=== PATIENT | female | born 1950 | race Caucasian/White ===

== ENCOUNTER 2017-02-01 11:33 | Observation (INO) ==
[2017-02-01] MEDS ORDERED: Ipratropium/Albuterol Neb 3 ML IH ONE (11:51)
[2017-02-01] MEDS ORDERED: methylPREDNISolone 125 MG in 0.9 % Sodium Chloride 100 ML IVPB ONE (11:51)
--- NOTE | 2017-02-01 11:56 | Emergency Department Note ---
Disposition Clinical Impression: Congestive heart failure Disposition: Home, Self-Care Condition: Fair Referrals: Alvarado Amor Jr, MD [Primary Care Provider] - Forms: ED Satisfaction Letter Time of Disposition: 13:49 General Adult HPI - General Chief complaint: ED Shortness of Breath/Dyspnea Stated complaint: KADEN Time Seen by Provider: 02/01/17 11:37 Source: patient Limitations: no limitations - History of Present Illness HPI Narrative: This 66-year-old female presents by squad for shortness of breath. She lives on home oxygen at night which is usually 3 L. She has a nebulizer machine but has gotten worse. She has been exacerbated over the last 2 days. She has a history of interstitial lung disease as well. His been no chest pain. No lower extremity pain or swelling. She has had some laryngitis. She has a low- grade temperature elevation. Pain Scale: 6 - Related Data Home Medications Medication Instructions Recorded Confirmed Sertraline [Zoloft] 100 mg PO DAILY 06/22/15 04/11/16 Trazodone HCl 150 mg PO QPM 06/22/15 04/11/16 ALPRAZolam [Xanax 1 MG Tablet] 1 mg PO BID 04/11/16 04/11/16 Atenolol [Tenormin] 50 mg PO BID 04/11/16 04/11/16 Dexlansoprazole [Dexilant] 60 mg PO BID 04/11/16 04/11/16 Metoclopramide [Reglan] 10 mg PO HS 04/11/16 04/11/16 Oxycodone HCl/Acetaminophen 1 each PO Q4-6H PRN 04/11/16 04/11/16 [Percocet 5-325 mg Tablet] Pregabalin [Lyrica] 150 mg PO TID 04/11/16 04/11/16 Ranitidine HCl [Zantac] 150 mg PO HS 04/11/16 04/11/16 Sucralfate [Carafate] 1 gm PO TID 04/11/16 04/11/16 Trazodone HCl 150 mg PO HS 04/11/16 04/11/16 Triamterene/Hydrochlorothiazid 1 each PO BID 04/11/16 04/11/16 [Dyazide 37.5-25 Capsule] amLODIPine [Norvasc] 5 mg PO DAILY 04/11/16 04/11/16 Allergies Allergy/AdvReac Type Severity Reaction Status Date / Time Diclofenac [From Voltaren] AdvReac Rash Verified 04/11/16 10:21 Penicillins [PCN] AdvReac Rash Verified 04/11/16 10:21 propoxyphene [From Darvon] AdvReac Rash Verified 04/11/16 10:21 All systems ED: reviewed and negative except as stated. Constitutional: Reports: fever Cardiovascular: Denies: chest pain Respiratory: Reports: dyspnea, wheezes. Denies: hemoptysis Gastrointestinal: Denies: abdominal pain, vomiting Musculoskeletal: Denies: back pain Past Medical History - Past Medical History Attestation: Yes The following information was validated with the patient. Medical history: Reports: COPD, GERD, hyperlipidemia, hypertension Surgical history: Reports: , cataract, hysterectomy, orthopedic, other Psychiatric history: Reports: anxiety, depression - Social History Smoking Status: Current every day smoker Smokeless Tobacco Status: No Alcohol use: Reports: none Drug use: Reports: none Physical Exam - General Limitations: no limitations General appearance: alert, in no apparent distress - Head Head exam: atraumatic - Eye Eye exam: Present: PERRL - ENT ENT exam: normal exam, normal oropharynx, mucous membranes moist - Neck Neck exam: Present: normal inspection - Chest Chest inspection: Present: symmetric chest wall rise - Respiratory Respiratory exam: Present: wheezes - Cardiovascular Cardiovascular exam: Present: regular rate, normal rhythm - Abdominal Exam Abdominal exam: Present: soft, Non-Tender - Extremities Exam Extremities exam: Absent: pedal edema, calf tenderness - Back Exam Back exam: Present: normal inspection - Neurological Exam Neurological exam: Present: alert, oriented X3 - Skin Skin exam: Present: warm, dry Course Course Narrative: This patient's initial presentation suggests pneumonia as she had laryngitis and an elevated temperature but the x-ray looks more like pulmonary edema. She also has a component of COPD. She is receiving nebulizer treatments. I discussed the case with the hospitalist to arrange for admission Vital Signs Temperature 99.3 F 02/01/17 11:34 Pulse Rate 84 02/01/17 11:34 Respiratory Rate 20 02/01/17 11:34 Blood Pressure 126/83 02/01/17 11:34 O2 Sat by Pulse Oximetry 92 02/01/17 11:34 Temperature 99.3 F 02/01/17 11:34 Pulse Rate 91 02/01/17 12:30 Respiratory Rate 20 02/01/17 12:30 Blood Pressure 109/71 02/01/17 12:30 O2 Sat by Pulse Oximetry 94 02/01/17 12:30 Oxygen Delivery Oxygen Delivery Nasal Cannula Medical Decision Making - Lab Data Result diagrams: 02/01/17 12:24 02/01/17 12:24 Lab Results 02/01/17 02/01/17 02/01/17 Range/Units 12:24 12:24 12:24 WBC 15.5 H (4.3-11.1) K/mcL RBC 4.07 (3.82-4.97) M/mcL Hgb 12.1 (11.5-15.4) g/dL Hct 35.3 (35.3-44.9) % MCV 86.7 (83.0-100.0) fL MCH 29.7 (28.0-33.3) pg MCHC 34.3 (31.6-35.5) g/dL RDW 14.6 H (11.5-14.5) % Plt Count 341 (140-400) K/mcL MPV 9.5 (9.4-12.4) fL Immature Gran % 0.5 (0-4) % Seg Neutrophils % 76.2 % Lymphocytes % 15.4 % Monocytes % 6.3 % Eosinophils % 1.2 % Basophils % 0.4 % Neutrophils # 11.8 H (1.6-8.9) K/mcL Lymphocytes # 2.4 (0.6-4.6) K/mcL Monocytes # 1.0 (0.0-1.3) K/mcL Eosinophils # 0.2 (0.0-0.6) K/mcL Basophils # 0.1 (0.0-0.2) K/mcL Sodium 124 L (136-145) mEq/L Potassium 3.3 L (3.5-4.5) mEq/L Chloride 88 L (98-109) mEq/L Carbon Dioxide 23 (19-29) mEq/L BUN 7 (7-20) mg/dL Creatinine 0.67 (0.57-1.11) mg/dL Est GFR ( Amer) > 60 (> 60) Est GFR (Non-Af Amer) > 60 (> 60) BUN/Creatinine Ratio 10 (6-26) Glucose 131 H (70-99) mg/dL Calculated Osmolality 258 L (280-300) Lactic Acid (0.5-2.2) mmol/L Calcium 9.6 (8.6-10.8) mg/dL Troponin I 0.01 (0-0.03) ng/mL B-Natriuretic Peptide (0-100) pg/mL 02/01/17 02/01/17 Range/Units 12:24 12:24 WBC (4.3-11.1) K/mcL RBC (3.82-4.97) M/mcL Hgb (11.5-15.4) g/dL Hct (35.3-44.9) % MCV (83.0-100.0) fL MCH (28.0-33.3) pg MCHC (31.6-35.5) g/dL RDW (11.5-14.5) % Plt Count (140-400) K/mcL MPV (9.4-12.4) fL Immature Gran % (0-4) % Seg Neutrophils % % Lymphocytes % % Monocytes % % Eosinophils % % Basophils % % Neutrophils # (1.6-8.9) K/mcL Lymphocytes # (0.6-4.6) K/mcL Monocytes # (0.0-1.3) K/mcL Eosinophils # (0.0-0.6) K/mcL Basophils # (0.0-0.2) K/mcL Sodium (136-145) mEq/L Potassium (3.5-4.5) mEq/L Chloride (98-109) mEq/L Carbon Dioxide (19-29) mEq/L BUN (7-20) mg/dL Creatinine (0.57-1.11) mg/dL Est GFR ( Amer) (> 60) Est GFR (Non-Af Amer) (> 60) BUN/Creatinine Ratio (6-26) Glucose (70-99) mg/dL Calculated Osmolality (280-300) Lactic Acid 0.9 (0.5-2.2) mmol/L Calcium (8.6-10.8) mg/dL Troponin I (0-0.03) ng/mL B-Natriuretic Peptide 24 (0-100) pg/mL - Radiology Data Radiology results reviewed: Yes I reviewed the patient's radiology results. - EKG Data EKG #1 EKG attestation: Yes I reviewed and interpreted this EKG. EKG results narrative: EKG interpreted by me showing sinus rhythm at a rate of 83, QRS of 82, QTC of 391, axis of 5. No ischemic changes.
[2017-02-01] MEDS ORDERED: Albuterol 2.5 MG/3 ML NEBULIZER ONE (12:02)
[2017-02-01] MEDS ORDERED: Albuterol 2.5 MG/3 ML NEBULIZER IH ONE (12:03)
[2017-02-01] MEDS: Albuterol 2.5 MG/3 ML NEBULIZER IH ONE ×2 (12:03→12:10)
[2017-02-01] MEDS ORDERED: methylPREDNISolone 125 MG/2 ML VIAL IVP ONE (12:16)
[2017-02-01 12:30] LABS: Basophils # 0.1 K/mcL (0.0-0.2); Basophils % 0.4 %; Eosinophils # 0.2 K/mcL (0.0-0.6); Eosinophils % 1.2 %; Hematocrit 35.3 % (35.3-44.9); Hemoglobin 12.1 g/dL (11.5-15.4); Immature Granulocytes % 0.5 % (0-4); Lymphocytes # 2.4 K/mcL (0.6-4.6); Lymphocytes % 15.4 %; Mean Corpuscular HGB Conc 34.3 g/dL (31.6-35.5); Mean Corpuscular Hemoglobin 29.7 pg (28.0-33.3); Mean Corpuscular Volume 86.7 fL (83.0-100.0); Mean Platelet Volume 9.5 fL (9.4-12.4); Monocytes % 6.3 %; Neutrophils # 11.8 K/mcL (1.6-8.9); Platelet Count 341 K/mcL (140-400); Red Blood Count 4.07 M/mcL (3.82-4.97); Red Cell Distribution Width 14.6 % (11.5-14.5); Segmented Neutrophils % 76.2 %
[2017-02-01 12:44] LABS: BUN/Creatinine Ratio 10 (6-26); Blood Urea Nitrogen 7 mg/dL (7-20); Calcium 9.6 mg/dL (8.6-10.8); Carbon Dioxide 23 mEq/L (19-29); Chloride 88 mEq/L (98-109); Glucose 131 mg/dL (70-99); Osmolality,Calculated 258 (280-300); Potassium 3.3 mEq/L (3.5-4.5); Sodium 124 mEq/L (136-145); eGFR For African Americans > 60 (> 60); eGFR For Non-African Americans > 60 (> 60)
[2017-02-01] MEDS ORDERED: *HR* HYDROcodone/Acet 5/325 mg TABLET PO PRN (14:28)
[2017-02-01] MEDS ORDERED: *HR* Morphine 2 MG/ML SYRINGE IVP PRN (14:28)
[2017-02-01] MEDS ORDERED: Naloxone 0.4 MG/ML INJ IVP PRN (14:28)
[2017-02-01] MEDS ORDERED: Ondansetron 4 MG/2 ML VIAL IVP PRN (14:28)
[2017-02-01] MEDS ORDERED: 0.9 % Sodium Chloride 500 ML IVC ONE (14:34)
--- NOTE | 2017-02-01 15:05 | Internal Med History&Physical ---
Date of Encounter: 02/01/17 Time of Encounter: 15:04 Assessment and Plan (1) Acute and chronic respiratory failure ([id number]) Current visit: Yes Status: Acute Multifactorial: COPDE, bronchitis, ILD exacerbation Continue O2 supplement CXR shows intersitial edema, however, patient has normal BNP <30., no evidence of fluid overload and no edema Continue duonebs, prednisone, levaquin Send sputum culture and respiratory panel Low suspicion for Influenza Blood culture has been sent by ER Repeat CXR-2 views a.m, after fluid hydration Obtain ECHO Qualifiers: Respiratory failure complication: hypoxia Qualified Code(s): J96.21 - Acute and chronic respiratory failure with hypoxia (2) COPD (chronic obstructive pulmonary disease) with acute bronchitis Current visit: Yes Status: Acute As above (3) Interstitial lung disease Current visit: Yes Status: Chronic As in acute on chronic failure (4) Hyponatremia Current visit: Yes Status: Acute Patient is on HCTZ/Triamterene combination Hold diuretics GIve gentle bolus Repeat Chem a.m Patient is not symptomatic (5) Hypokalemia Current visit: Yes Status: Acute Secondary to diuretics and multiple use of nebs Replaced with 40meq, continue to monitor (6) Hypertension Current visit: Yes Status: Chronic Controlled, resume home meds, except diuretics Qualifiers: Hypertension type: essential hypertension Qualified Code(s): I10 - Essential (primary) hypertension (7) Tobacco abuse Current visit: Yes Status: Chronic Chronic, cessation encouraged Internal Medicine - H&P: HPI Chief complaint: Shortness of breath Admitted From: Home Plans for Post Hospital Care: Home History of present illness: Ms. Wilson is a 66 year old female with PMH of COPD, ILD, Tobacco abuse, chronic respiratory failure on nocturnal home O2, HTN, anxiety/Depression, GERD She presented to the ER by squad with complains of shortness of breath for the past 3-4 days with a new cough , productive of yellowish sputum. She reports she has been having low oxygen saturations and requiring continuous use of her oxygen since her symptoms started, she reports chills. She denies sore throat, rhinorrhea, sick contacts, arthralgia or myalgias. She denies recent travels She has a hx of ILD diagnosed by CT scan , she also has Emphysema and smokes daily She denies orthopnea, leg swelling, PND, chest pain, hemoptysis She has no GI symptoms She also reports drinking more liquid in the past few days. She denies changes in urinary symptoms Other ROS is negative Past Med Surg Social Fam HX - Past Medical History Medical history: COPD, GERD, hyperlipidemia, hypertension Psychiatric history: anxiety, depression - Past Surgical History Surgical History: , cataract, hysterectomy, orthopedic, other - Social History Smoking Status: Current every day smoker Smokeless Tobacco Status: No Alcohol use: none Drug use: none Internal Medicine - H&P: Meds Sertraline [Zoloft] 100 mg PO DAILY 06/22/15 [History] ALPRAZolam [Xanax 1 MG Tablet] 1 mg PO BID 04/11/16 [History] Atenolol [Tenormin] 50 mg PO BID 04/11/16 [History] Metoclopramide [Reglan] 10 mg PO HS 04/11/16 [History] Pregabalin [Lyrica] 150 mg PO TID 04/11/16 [History] Ranitidine HCl [Zantac] 150 mg PO HS 04/11/16 [History] Trazodone HCl 150 mg PO HS 04/11/16 [History] Triamterene/Hydrochlorothiazid [Dyazide 37.5-25 Capsule] 1 each PO BID 04/11/16 [History] amLODIPine [Norvasc] 5 mg PO DAILY 04/11/16 [History] Albuterol Neb [Proventil Neb] 2.5 mg IH TID PRN 02/01/17 [History] Cholecalciferol (Vitamin D3) [Vitamin D3] 1,000 mg PO DAILY 02/01/17 [History] Fluticasone Propionate Nasal [Flonase] 1 spray NS DAILY 02/01/17 [History] Fluticasone/Vilanterol [Breo Ellipta 200-25 Mcg INH] 1 puff IH DAILY 02/01/17 [ History] Omeprazole [PriLOSEC] 20 mg PO BID 02/01/17 [History] Oxygen [Oxygen] 3 l NS HS 02/01/17 [History] 3 Allergy/AdvReac Type Severity Reaction Status Date / Time Diclofenac [From Voltaren] AdvReac Rash Verified 04/11/16 10:21 Penicillins [PCN] AdvReac Rash Verified 04/11/16 10:21 propoxyphene [From Darvon] AdvReac Rash Verified 04/11/16 10:21 All Systems PM: A 10-system review of systems was performed and is negative for pertinent findings except as documented above in the HPI. - Constitutional Constitutional: chills, no fever(s), no malaise, no night sweats - EENT Eyes: no change in vision, no discharge, no pain, no photophobia Ears: no ear discharge, no ear pain, no tinnitus Nose, mouth and throat: no dysphagia, no nasal discharge, no neck pain, no sore throat - Cardiovascular Cardiovascular ROS IM: no chest pain, no diaphoresis, no dyspnea, no lightheadedness, no palpitations, no syncope - Respiratory Respiratory: as per HPI - Gastrointestinal Gastrointestinal: no abdominal pain, no diarrhea, no hematemesis, no hematochezia, no melena, no nausea, no vomiting - Genitourinary Genitourinary: no change in urinary stream, no dysuria, no flank pain, no hematuria - Musculoskeletal Musculoskeletal ROS IM: no numbness, no tingling - Integumentary Integumentary IM: no rash, no unusual bruising - Neurological Neurological ROS: no confusion, no convulsions, no focal weakness, no numbness, no tingling, no tremor(s) - Hematologic/Lymphatic Hematologic/Lymphatic: no easy bruising - Constitutional Vitals: Temp Pulse Resp BP Pulse Ox 99.3 F 86 20 107/72 93 02/01/17 11:34 02/01/17 13:56 02/01/17 14:19 02/01/17 14:19 02/01/17 13:56 VSS-afebrile, not tachycardic, not tachypneic, O2 sat 98% on 3L O2 Gen: Lying flat in bed, comfortable, not in respiratory distress HEENT: Moist oral mucosa, not cyanotic. no JVD Chest: Inspiratory crackles, worse on LL zone Heart: S1, S2 only Abdomen: Soft, not tender Extremities: No edema Internal Med - H&P Results - Labs CBC & Chem 7: 02/01/17 12:24 02/01/17 12:24
[2017-02-01] MEDS ORDERED: Ipratropium/Albuterol Neb 3 ML IH SCH (17:00)
[2017-02-01] MEDS: Levofloxacin 500 MG/100 ML 500 MG/100 ML BAG IVPB SCH (18:09)
[2017-02-01] MEDS: Acetaminophen 325 MG TABLET PO PRN (20:50)
[2017-02-01] MEDS ORDERED: traZODone 50 MG TABLET PO SCH (21:00)
[2017-02-01] MEDS ORDERED: Famotidine 20 MG TABLET PO SCH (21:00)
[2017-02-01] MEDS: Pregabalin 75 MG CAPSULE PO SCH (21:02)
[2017-02-01] MEDS: ALPRAZolam 1 MG TABLET PO SCH (21:04)
[2017-02-01] MEDS: Albuterol 2.5 MG/3 ML NEBULIZER IH SCH (22:04)
[2017-02-02 03:46] LABS: Hematocrit 33.2 % (35.3-44.9); Hemoglobin 11.3 g/dL (11.5-15.4); Immature Granulocytes % 0.5 % (0-4); Lymphocytes # 0.8 K/mcL (0.6-4.6); Lymphocytes % 10.6 %; Mean Corpuscular Hemoglobin 29.4 pg (28.0-33.3); Mean Corpuscular Volume 86.5 fL (83.0-100.0); Mean Platelet Volume 9.9 fL (9.4-12.4); Monocytes # 0.3 K/mcL (0.0-1.3); Monocytes % 3.5 %; Neutrophils # 6.6 K/mcL (1.6-8.9); Platelet Count 390 K/mcL (140-400); Red Blood Count 3.84 M/mcL (3.82-4.97); Red Cell Distribution Width 14.6 % (11.5-14.5); Segmented Neutrophils % 85.4 %
[2017-02-02] MEDS: Albuterol 2.5 MG/3 ML NEBULIZER IH SCH ×2 (03:56→10:33)
[2017-02-02 04:00] LABS: BUN/Creatinine Ratio 16 (6-26); Blood Urea Nitrogen 9 mg/dL (7-20); Calcium 9.5 mg/dL (8.6-10.8); Carbon Dioxide 24 mEq/L (19-29); Chloride 96 mEq/L (98-109); Glucose 133 mg/dL (70-99); Osmolality,Calculated 265 (280-300); Sodium 127 mEq/L (136-145); eGFR For African Americans > 60 (> 60); eGFR For Non-African Americans > 60 (> 60)
[2017-02-02 04:03] LABS: Potassium 4.4 mEq/L (3.5-4.5)
[2017-02-02] MEDS ORDERED: *HR* Enoxaparin 40 MG/0.4 ML SYRINGE SQ SCH (06:00)
[2017-02-02 07:35] VITALS: BP 116/71
--- NOTE | 2017-02-02 08:45 | Internal Med Progress Note ---
Date of Encounter: 02/02/17 Time of Encounter: 08:43 - Assessment and plan (1) Acute and chronic respiratory failure ([id number]) Current Visit: Yes Status: Acute Assessment and plan: chest xray showed interstitial pulmonary edema without focal lung consolidation. eiology likely multifactorial insetting of continued tobacco use, baseline end stage COPD, ILD. BNP 24 Plan: continue oxygen titration scheduled DuoNebs, prednisone levaquin day 2 blood culture x2, sputum culture pending. RIP pending. repeat CXR pending. Echo pending. Qualifiers: Respiratory failure complication: hypoxia Qualified Code(s): J96.21 - Acute and chronic respiratory failure with hypoxia (2) COPD (chronic obstructive pulmonary disease) with acute bronchitis Current Visit: Yes Status: Acute Assessment and plan: plan as above (3) Interstitial lung disease Current Visit: Yes Status: Chronic Assessment and plan: chronic (4) Hyponatremia Current Visit: Yes Status: Acute Assessment and plan: likely secondary to HCTZ/triamterene will hold for now. patient got 500cc bolus after admission. continue to monitor. (5) Hypokalemia Current Visit: Yes Status: Resolved (6) Hypertension Current Visit: Yes Status: Chronic Assessment and plan: controlled at this time. resume home meds except diuretics. Qualifiers: Hypertension type: essential hypertension Qualified Code(s): I10 - Essential (primary) hypertension (7) Tobacco abuse Current Visit: Yes Status: Chronic Assessment and plan: smoking cessation advised. (8) DVT prophylaxis Current Visit: Yes Status: Acute Assessment and plan: Lovenox SQ - Constitutional Vitals: Temp Pulse Resp BP Pulse Ox 98.1 F 75 15 116/71 92 02/02/17 07:33 02/02/17 07:33 02/02/17 07:33 02/02/17 07:33 02/02/17 07:33 Internal Medicine: Result - Labs CBC & Chem 7: 02/02/17 03:00 02/02/17 03:00 Labs: Short CBC 02/02/17 Range/Units 03:00 WBC 7.8 (4.3-11.1) K/mcL Hgb 11.3 L (11.5-15.4) g/dL Hct 33.2 L (35.3-44.9) % Plt Count 390 (140-400) K/mcL Neutrophils # 6.6 (1.6-8.9) K/mcL BMP 02/02/17 03:00 Sodium 127 L Potassium 4.4 D Chloride 96 L Carbon Dioxide 24 BUN 9 Creatinine 0.58 Glucose 133 H Calcium 9.5 Consult Discharge Plan - Plan Referrals: Alvarado Amor Jr, MD [Primary Care Provider] -
[2017-02-02] MEDS ORDERED: Cholecalciferol (D-3) 1,000 UNIT TABLET PO SCH (09:00)
[2017-02-02] MEDS ORDERED: predniSONE 20 MG TABLET PO SCH (09:00)
[2017-02-02] MEDS ORDERED: amLODIPine 5 MG TABLET PO SCH (09:00)
[2017-02-02] MEDS: Levofloxacin 500 MG/100 ML 500 MG/100 ML BAG IVPB SCH (10:38)
[2017-02-02] MEDS: Acetaminophen 325 MG TABLET PO PRN (10:40)
[2017-02-02] MEDS: Pregabalin 75 MG CAPSULE PO SCH (10:41)
[2017-02-02] MEDS: ALPRAZolam 1 MG TABLET PO SCH (10:41)
--- NOTE | 2017-02-02 12:51 | Discharge Summary ---
<Moo Spear - Last Filed: 02/02/17 12:34> Date of Encounter: 02/02/17 Time of Encounter: 12:34 - Discharge Diagnosis (1) Acute and chronic respiratory failure ([id number]) Priority: Primary Status: Acute Qualifiers: Respiratory failure complication: hypoxia Qualified Code(s): J96.21 - Acute and chronic respiratory failure with hypoxia (2) COPD (chronic obstructive pulmonary disease) with acute bronchitis Priority: Secondary Status: Acute (3) Interstitial lung disease Priority: Secondary Status: Chronic (4) Hyponatremia Priority: Secondary Status: Acute (5) Hypokalemia Priority: Secondary Status: Resolved (6) Hypertension Priority: Secondary Status: Chronic Qualifiers: Hypertension type: essential hypertension Qualified Code(s): I10 - Essential (primary) hypertension (7) Tobacco abuse Priority: Secondary Status: Chronic (8) DVT prophylaxis Priority: Secondary Status: Acute (9) Acute exacerbation of chronic obstructive pulmonary disease (COPD) Priority: Secondary Status: Acute - Discharge Medications Prescriptions: levoFLOXacin [Levaquin] 500 mg PO DAILY #5 tablet predniSONE [PredniSONE] See Taper PO TAPER #55 bottle Triamterene [Dyrenium] 50 mg PO DAILY #30 capsule Home Medications: Sertraline [Zoloft] 100 mg PO DAILY 06/22/15 [History] ALPRAZolam [Xanax 1 MG Tablet] 1 mg PO BID 04/11/16 [History] Atenolol [Tenormin] 50 mg PO BID 04/11/16 [History] Metoclopramide [Reglan] 10 mg PO HS 04/11/16 [History] Pregabalin [Lyrica] 150 mg PO TID 04/11/16 [History] Ranitidine HCl [Zantac] 150 mg PO HS 04/11/16 [History] Trazodone HCl 150 mg PO HS 04/11/16 [History] amLODIPine [Norvasc] 5 mg PO DAILY 04/11/16 [History] Albuterol Neb [Proventil Neb] 2.5 mg IH TID PRN 02/01/17 [History] Cholecalciferol (Vitamin D3) [Vitamin D3] 1,000 mg PO DAILY 02/01/17 [History] Fluticasone Propionate Nasal [Flonase] 1 spray NS DAILY 02/01/17 [History] Fluticasone/Vilanterol [Breo Ellipta 200-25 Mcg INH] 1 puff IH DAILY 02/01/17 [ History] Omeprazole [PriLOSEC] 20 mg PO BID 02/01/17 [History] Oxygen 3 l NS HS 02/01/17 [History] Acetaminophen [Tylenol] 650 mg PO Q6HR PRN tablet 02/02/17 [Rx] Pseudoephedrine [Sudafed] 60 mg PO Q6HR PRN tablet 02/02/17 [Rx] Triamterene [Dyrenium] 50 mg PO DAILY #30 capsule 02/02/17 [Rx] levoFLOXacin [Levaquin] 500 mg PO DAILY #5 tablet 02/02/17 [Rx] predniSONE [PredniSONE] See Taper PO TAPER #55 bottle 02/02/17 [Rx] Allergies/Adverse Reactions: 3 Allergy/AdvReac Type Severity Reaction Status Date / Time Diclofenac [From Voltaren] AdvReac Rash Verified 04/11/16 10:21 Penicillins [PCN] AdvReac Rash Verified 04/11/16 10:21 propoxyphene [From Darvon] AdvReac Rash Verified 04/11/16 10:21 Procedures/tests Complete & Pending: Procedures Performed prior 72 hours Category Date Time Status ECG 12 lead ECG [ECG] Routine Y 02/01/17 11:40 Completed EV echocardiogram Routine Y 02/02/17 09:00 Completed Date of admission: 02/01/17 14:05 Primary care physician: Alvarado Amor Jr, MD Consults: 02/01/17 14:31 Consult to Nurse Navigator [CONS] Routine Comment: - Patient Status Disposition: Home, Self-Care Condition: Fair Functional capacity at discharge: independent ambulation Overall status at discharge: patient is back to baseline - Discharge Instructions Follow Up With: Alvarado Amor Jr, MD [Primary Care Provider] - Additional Instructions: please take prednisone taper and antibiotic as prescribed. please stop taking triamterene/hydrochlorothiazide due to low sodium. please start taking triamterene as prescribed. return to emergency room if you develop increasing shortness of breath, fever, chills, or chest pain. follow up with family doctor within one week of discharge. - Diet and Activity Activity: increase activity as tolerated Diet: low fat, low cholesterol Hospital course: Ms. Wilson is a 66 year old female with PMHx of COPD (on 3L home oxygen at night) , interstitial lung disease, tobacco abuse, chronic respiratory failure,, hypertension, anxiety, deprssion, gerd. She presented to the ED on 02/01/17 with chief complaint of shortness of breath for the past 3-4 days with new onset cough with yellow productive sputum. she also reported low oxygen saturations requiring continuous use of her oxygen and chills. patient was admitted to observation. she was started on levaquin, given steroids, bronchodilators, and was monitored overnight. patient continued to improve with steroids and antibiotics. she was also found to be hyponatremic with serum sodium 124. her triamterene/hydrochlorothiazide was discontinued and she was discharged home on triamterene. she should follow up with her primary care doctor outpatient regarding this. patient was stable overnight, and she was discharged home in stable condition. Plan: please take prednisone taper and antibiotic as prescribed. please stop taking triamterene/hydrochlorothiazide due to low sodium. please start taking triamterene as prescribed. return to emergency room if you develop increasing shortness of breath, fever, chills, or chest pain. follow up with family doctor within one week of discharge. - Time Spent with Patient Total time spent providing and/or coordinating discharge services: - Constitutional Vitals: Temp Pulse Resp BP Pulse Ox 98.1 F 75 16 116/71 93 02/02/17 07:33 02/02/17 07:33 02/02/17 10:33 02/02/17 07:33 02/02/17 10:33 General appearance: Present: A&O X 3, pleasant, no acute distress - Head Head exam: Present: atraumatic, normocephalic - Neck Neck exam general surgery: Present: supple, trachea midline - Respiratory Respiratory exam: Present: decreased breath sounds. Absent: rhonchi, wheezes - Cardiovascular Cardiovascular exam: Present: RRR, +S1, +S2 - GI/Abdominal GI/Abdominal exam: Present: normal bowel sounds, soft. Absent: distended, tenderness - Extremities Exam Extremities exam: Absent: cyanotic, pedal edema - Neurological Exam Neurological exam: Present: alert, oriented X3, no focal deficits - Psychiatric Psychiatric exam: Present: normal affect, normal mood <Jefferson James H - Last Filed: 02/02/17 13:09> Date of Encounter: 02/02/17 Procedures/tests Complete & Pending: Procedures Performed prior 72 hours Category Date Time Status ECG 12 lead ECG [ECG] Routine Y 02/01/17 11:40 Completed EV echocardiogram Routine Y 02/02/17 09:00 Completed Date of admission: 02/01/17 14:05 Primary care physician: Alvarado Amor Jr, MD Consults: 02/01/17 14:31 Consult to Nurse Navigator [CONS] Routine Comment: Hospital course: Ms. Wilson is a 66 year old female - Time Spent with Patient Total time spent providing and/or coordinating discharge services: - Constitutional Vitals: Temp Pulse Resp BP Pulse Ox 98.1 F 75 16 116/71 93 02/02/17 07:33 02/02/17 07:33 02/02/17 10:33 02/02/17 07:33 02/02/17 10:33 - Attending Attestation Acute on chronic respiratory failure secondary to acute COPD exacerbation likely due to acute bacterial bronchitis Continue Levaquin due to penicillin allergies, taper prednisone Pulmonary function tests in 6 weeks after follow-up with pulmonary Discontinue hydrochlorothiazide due to hyponatremia, continue only triamterene Time spent on this discharge 40 minutes I examined this patient and my medical decision-making was reviewed with the Resident Physician. I agree with the documented findings, disposition and treatment plan as described except to the extent set forth below.
--- NOTE | 2017-02-02 18:17 | Electrocardiograph Report ---
[place] [id number] Test Date: 2017-02-01 Pat Name: Tameka Wilson Department: 102 Room: [facility] Gender: F Executive Producer: Deanne : 1950 Requested By: Jefferson James Order Number: [id number] Reading MD: Jermaine Gutiérrez MD Measurements Intervals [place] Rate: 83 P: 29 ID: [id number] QRS: 5 QRSD: 82 T: 3 QT: 351 QTc: 391 Interpretive Statements SINUS RHYTHM BASELINE ARTIFACT Electronically Signed On 02-02-2017 18:16:17 EDT by Jermaine Gutiérrez MD
== END 2017-02-02 14:43 | disposition home or self-care (01) ==
LOC: EMEROO 11:33 → 3NENU 11:33 → SUATTDRO 14:05 → 3NENU 14:29
PROVIDERS: ADMIT Internal Medicine; ATTEND Internal Medicine

== ENCOUNTER 2017-05-31 11:55 | Inpatient (IN) ==
[2017-05-31] MEDS ORDERED: Aspirin 81 MG TAB.CHEW PO ONE (12:10)
[2017-05-31] MEDS ORDERED: Nitroglycerin 0.4 MG TAB.SUBL SL ONE (12:10)
--- NOTE | 2017-05-31 12:14 | Emergency Department Note ---
Disposition Clinical Impression: Chest pain of uncertain etiology Pneumonia Qualifiers: Aspiration pneumonia type: unspecified Laterality: bilateral Lung location: unspecified part of lung Disposition: Admitted As Inpatient Condition: Good Time of Disposition: 17:25 Chest Pain HPI - General Chief Complaint: ED Chest Pain Stated Complaint: chest pain Time Seen by Provider: 05/31/17 11:56 Source: patient, EMS Limitations: no limitations Vital Signs Reviewed: Yes Nursing Notes Reviewed: Yes - History of Present Illness HPI Narrative: Mrs. Wilson, [place] 69 female, presents from home for evaluation of chest pain. Onset 9 AM this morning and lasting 20-30 minutes before spontaneously resolving. Described as sharp, stabbing, burning. Located substernally with radiation directly posterior as well as to her bilateral shoulders. Occurred at rest. She had associated dyspnea and was hot/flushed. Once resolved, spontaneously reoccurred approximately 1 hour later lasting 15-20 minutes this time with identical character. She is asymptomatic at this time. Cardiac risk factors: COPD, currently smoker, hypertension, hyperlipidemia, age No history of CAD or ACS. ROS: Positive: As above Negative: Fever, chills, nausea, vomiting, diaphoresis, or abdominal pains. No dizziness or vertigo. No numbness, tingling, weakness. Severity scale (1-10): 4 - Related Data Home Medications Medication Instructions Recorded Confirmed Sertraline [Zoloft] 100 mg PO DAILY 06/22/15 05/31/17 ALPRAZolam [Xanax 1 MG Tablet] 1 mg PO BID 04/11/16 05/31/17 Atenolol [Tenormin] 50 mg PO BID 04/11/16 05/31/17 Metoclopramide [Reglan] 10 mg PO HS 04/11/16 05/31/17 Pregabalin [Lyrica] 150 mg PO TID 04/11/16 05/31/17 Ranitidine HCl [Zantac] 150 mg PO HS 04/11/16 05/31/17 Trazodone HCl 150 mg PO HS 04/11/16 05/31/17 amLODIPine [Norvasc] 5 mg PO DAILY 04/11/16 05/31/17 Albuterol Neb [Proventil Neb] 2.5 mg IH TID PRN 02/01/17 05/31/17 Cholecalciferol (Vitamin D3) 1,000 mg PO DAILY 02/01/17 05/31/17 [Vitamin D3] Fluticasone Propionate Nasal 1 spray NS DAILY 02/01/17 05/31/17 [Flonase] Fluticasone/Vilanterol [Breo 1 puff IH DAILY 02/01/17 05/31/17 Ellipta 200-25 Mcg INH] Omeprazole [PriLOSEC] 20 mg PO BID 02/01/17 05/31/17 Oxygen 3 l NS HS 02/01/17 05/31/17 Acetylcysteine [Nac] 600 mg PO BID 05/31/17 05/31/17 Montelukast [Singulair] 10 mg PO DAILY 05/31/17 05/31/17 Triamterene/HCTZ 37.5/25mg 1 each PO DAILY 05/31/17 05/31/17 [Dyazide] Valacyclovir HCl [Valtrex] 1,000 mg PO DAILY 05/31/17 05/31/17 Previous Rx's Medication Instructions Recorded Acetaminophen [Tylenol] 650 mg PO Q6HR PRN tablet 02/02/17 Allergies Allergy/AdvReac Type Severity Reaction Status Date / Time Diclofenac [From Voltaren] AdvReac Rash Verified 05/31/17 12:27 Penicillins [PCN] AdvReac Rash Verified 05/31/17 12:27 propoxyphene [From Darvon] AdvReac Rash Verified 05/31/17 12:27 All systems ED: reviewed and negative except as stated. Review of Systems: As Per HPI Chest Pain PMH - Past Medical History Medical history: Reports: non-contributory Surgical history: Reports: , cataract, hysterectomy, orthopedic, other Psychiatric history: Reports: anxiety, depression - Social History Smoking Status: Current every day smoker Alcohol use: Reports: none Drug use: Reports: none Physical Exam Vital Signs Reviewed General: Patient is alert, oriented, and in no acute distress. HEENT: No facial asymmetry. Head is normocephalic and atraumatic. PERRLA, EOMI. mucosa moist. Trachea midline. Cardiovascular: Heart regular rate and rhythm without clicks, rubs, gallops, or murmurs. No JVD. PMI nondisplaced. Bilateral radial posterior tibial pulses 2 /4 equal. No pedal edema. Respiratory: Symmetric chest rise with good respiratory effort. Bilateral breath sounds are clear without wheezing, crackles, or rhonchi. Abdomen: Bowel sounds present normoactive x-4 quadrants. Abdomen is soft, nondistended, and nontender. No organomegaly noted. Musculoskeletal: Spontaneously moving all extremity. Neuro: Alert and oriented 4. Sensation light touch intact. Skin: Warm, dry, intact Psych: Patient's affect is appropriate for situation. - General Limitations: no limitations General appearance: alert, in no apparent distress Course Course Narrative: Patient symptoms are concerning for chest pain. Will perform chest pain workup looking for cardiac source. Additionally, will perform d-dimer. EEG does not show any acute ischemic changes Portable chest x-ray unremarkable. D-dimer is elevated. CTA chest shows no pulmonary emboli. Bilateral groundglass opacities consistent with infectious etiology present. Serum hematology is unremarkable. Serum chemistry shows hyponatremia. This is not clinically explain her symptoms. No renal dysfunction. Troponin is below upper limit of normal. Patient remains a high risk patient from a cardiac standpoint. She agrees to admission for continued evaluation of her chest pain as well as management for her pneumonia. I discussed the patient with the admitting hospitalist who agrees to accept the patient for continuing evaluation and management. Chest X-Ray 05/31/17 00:00 IMPRESSION: Negative portable study. D/ / Coty Ortiz Cha, MD / Coty Ortiz Cha, MD Interpreting Provider: Coty Ortiz Cha, MD Chest CTA 05/31/17 13:08 IMPRESSION: No evidence of pulmonary embolism. Bilateral ground-glass opacities which are likely infectious/inflammatory. Increased mediastinal lymphadenopathy is likely reactive. Consider short interval follow-up chest CT within 3 months to ensure resolution. Mild fibrotic changes in the subpleural lower lobes, similar to the prior study. This can be better assessed when acute issues have resolved. D/ / To Wagner MD / To Wagner MD Interpreting Provider: To Wagner MD Vital Signs Temperature 98.1 F 05/31/17 11:57 Pulse Rate 58 05/31/17 11:57 Respiratory Rate 18 05/31/17 11:57 Blood Pressure 125/88 05/31/17 11:57 O2 Sat by Pulse Oximetry 96 05/31/17 11:57 Temperature 97.9 F 05/31/17 16:34 Pulse Rate 63 05/31/17 16:34 Respiratory Rate 16 05/31/17 16:34 Blood Pressure 124/82 05/31/17 16:34 O2 Sat by Pulse Oximetry 96 05/31/17 16:34 Oxygen Delivery Oxygen Delivery Room Air Chest Pain - Medical Records Medical records reviewed: Yes I reviewed the patient's medical records. - Lab Data Lab results reviewed: Yes I reviewed the patient's lab results. Result diagrams: 05/31/17 12:15 05/31/17 12:15 Lab Results 05/31/17 05/31/17 05/31/17 Range/Units 12:15 12:15 12:15 WBC 10.8 (4.3-11.1) K/mcL RBC 3.78 L (3.82-4.97) M/mcL Hgb 11.8 (11.5-15.4) g/dL Hct 34.8 L (35.3-44.9) % MCV 92.1 (83.0-100.0) fL MCH 31.2 (28.0-33.3) pg MCHC 33.9 (31.6-35.5) g/dL RDW 13.2 (11.5-14.5) % Plt Count 353 (140-400) K/mcL MPV 9.8 (9.4-12.4) fL Immature Gran % 0.3 (0-4) % Seg Neutrophils % 68.7 % Lymphocytes % 22.1 % Monocytes % 5.9 % Eosinophils % 2.0 % Basophils % 1.0 % Neutrophils # 7.4 (1.6-8.9) K/mcL Lymphocytes # 2.4 (0.6-4.6) K/mcL Monocytes # 0.6 (0.0-1.3) K/mcL Eosinophils # 0.2 (0.0-0.6) K/mcL Basophils # 0.1 (0.0-0.2) K/mcL D-Dimer 850 H (0-500) ng/mLFEU Sodium 126 L (136-145) mEq/L Potassium 3.8 (3.5-5.1) mEq/L Chloride 95 L (98-107) mEq/L Carbon Dioxide 25 (23-29) mEq/L BUN 10 (8-23) mg/dL Creatinine 0.53 L (0.60-1.20) mg/dL Est GFR ( Amer) > 60 (> 60) Est GFR (Non-Af Amer) > 60 (> 60) BUN/Creatinine Ratio 19 (6-26) Glucose 104 (70-105) mg/dL Calculated Osmolality 261 L (280-300) Lactic Acid (0.5-2.2) mmol/L Calcium 9.0 (8.6-10.3) mg/dL Troponin I (< 0.04) ng/mL 05/31/17 05/31/17 Range/Units 12:15 14:33 WBC (4.3-11.1) K/mcL RBC (3.82-4.97) M/mcL Hgb (11.5-15.4) g/dL Hct (35.3-44.9) % MCV (83.0-100.0) fL MCH (28.0-33.3) pg MCHC (31.6-35.5) g/dL RDW (11.5-14.5) % Plt Count (140-400) K/mcL MPV (9.4-12.4) fL Immature Gran % (0-4) % Seg Neutrophils % % Lymphocytes % % Monocytes % % Eosinophils % % Basophils % % Neutrophils # (1.6-8.9) K/mcL Lymphocytes # (0.6-4.6) K/mcL Monocytes # (0.0-1.3) K/mcL Eosinophils # (0.0-0.6) K/mcL Basophils # (0.0-0.2) K/mcL D-Dimer (0-500) ng/mLFEU Sodium (136-145) mEq/L Potassium (3.5-5.1) mEq/L Chloride (98-107) mEq/L Carbon Dioxide (23-29) mEq/L BUN (8-23) mg/dL Creatinine (0.60-1.20) mg/dL Est GFR ( Amer) (> 60) Est GFR (Non-Af Amer) (> 60) BUN/Creatinine Ratio (6-26) Glucose (70-105) mg/dL Calculated Osmolality (280-300) Lactic Acid 0.7 (0.5-2.2) mmol/L Calcium (8.6-10.3) mg/dL Troponin I 0.03 (< 0.04) ng/mL - EKG Data EKG attestation: Yes I reviewed and interpreted this EKG. EKG results narrative: EKG dated 31 May 2017 at 12:02 interpreted as sinus bradycardia with a rate of 57. Normal axis. Borderline prolonged AK at [address]-T changes. T-wave inversion in lead V3 present a comparative EKG. Compared to previous EKG dated 01/05/2017 showing no acute ischemic changes of comparison. Heart Score - Score History: Moderately Suspicious EKG: Non Specific repolarisation Disturbance Age: Greater than 65 Risk Factors: Equal/Greater than 3 risk factor or history of atherosclerotic disease Troponin: Less than normal limit HEART Score Total: 6 Critical Care Time Critical Care Time: Yes Total Critical Care Time: 35 Attestation: Critical care time 35 minutes managing patient's chest pain. Attestation Statement - Attestation Attestation: Patient was seen with resident physician. I reviewed the history, physical, assessment and plan, and agree with the findings. I also personally evaluated this patient and had [id number] time with this patient. 66-year-old female presents emergency Department with 2 episodes of chest pain. First episode occurred at 9 AM today lasted approximately 15-20 minutes. Second occurred later in the day and again lasted about 15 minutes. She said the episodes were severe including sharp and dull pain radiating into the back. She got hot and flushed, but is not sure she was sweaty and had some mild nausea associated with them as well. She has not had anything like this in the past. Last stress test and echo she said was multiple years ago. She denies fevers or chills. She says she has done some heavy lifting recently, but the pain is not reproducible with palpation or movement. On examination vital signs are stable. ENT is unremarkable. Heart normal. Lungs normal. Abdomen soft nontender. Extremities no swelling or other abnormalities noted. Neurologically intact. Skin unremarkable. Psych patient appears appropriate for age. ED course we will do cardiac workup and admit patient for chest pain. EKG shows no acute ischemic changes. Patient's d-dimer was elevated which prompted a CT scan which demonstrated pneumonia. Patient was started on antibiotics for pneumonia. She will be admitted to the hospital service for community-acquired pneumonia and chest pain. Hemodynamically she remained in stable condition prior to admission. I agree with the resident physician assessment and plan.
[2017-05-31 12:25] LABS: Basophils # 0.1 K/mcL (0.0-0.2); Eosinophils # 0.2 K/mcL (0.0-0.6); Hematocrit 34.8 % (35.3-44.9); Hemoglobin 11.8 g/dL (11.5-15.4); Immature Granulocytes % 0.3 % (0-4); Lymphocytes # 2.4 K/mcL (0.6-4.6); Lymphocytes % 22.1 %; Mean Corpuscular HGB Conc 33.9 g/dL (31.6-35.5); Mean Corpuscular Hemoglobin 31.2 pg (28.0-33.3); Mean Corpuscular Volume 92.1 fL (83.0-100.0); Mean Platelet Volume 9.8 fL (9.4-12.4); Monocytes # 0.6 K/mcL (0.0-1.3); Monocytes % 5.9 %; Neutrophils # 7.4 K/mcL (1.6-8.9); Platelet Count 353 K/mcL (140-400); Red Blood Count 3.78 M/mcL (3.82-4.97); Red Cell Distribution Width 13.2 % (11.5-14.5); Segmented Neutrophils % 68.7 %
[2017-05-31 12:50] LABS: BUN/Creatinine Ratio 19 (6-26); Blood Urea Nitrogen 10 mg/dL (8-23); Carbon Dioxide 25 mEq/L (23-29); Chloride 95 mEq/L (98-107); Glucose 104 mg/dL (70-105); Osmolality,Calculated 261 (280-300); Potassium 3.8 mEq/L (3.5-5.1); Sodium 126 mEq/L (136-145); eGFR For African Americans > 60 (> 60); eGFR For Non-African Americans > 60 (> 60)
[2017-05-31] MEDS ORDERED: 0.9 % Sodium Chloride 500 ML IVC ONE (13:08)
[2017-05-31] MEDS ORDERED: Levofloxacin 750 MG/150 ML 750 MG/150 ML BAG IVPB ONE (14:05)
[2017-05-31] MEDS ORDERED: Albuterol 2.5 MG/3 ML NEBULIZER IH PRN (16:03)
[2017-05-31] MEDS ORDERED: Acetaminophen 325 MG TABLET PO PRN (16:03)
[2017-05-31] MEDS ORDERED: Naloxone 0.4 MG/ML INJ IVP PRN (16:05)
[2017-05-31] MEDS ORDERED: *HR* Morphine 2 MG/ML SYRINGE IVP PRN (16:05)
[2017-05-31] MEDS ORDERED: *HR* OxyCODONE Immed Rel 5 MG TABLET PO PRN (16:05)
--- NOTE | 2017-05-31 16:14 | Internal Med History&Physical ---
Date of Encounter: 05/31/17 Time of Encounter: 16:09 Assessment and Plan (1) Chest pain Current visit: Yes Status: Acute r/o ACS-Cycle troponin, EKG is normal, no st segment or T wave or QRS changes CXR unremarkable Chest CT changes are chronic, due to ILD, patient does not have new chest symptoms Check ECHO, Nuclear stress test, Continue ASA Add statin Check lipid panel am NTG SL prn Hemodynamically stable Qualifiers: Chest pain type: unspecified Qualified Code(s): R07.9 - Chest pain, unspecified (2) Congestive heart failure Current visit: Yes Status: Chronic euvolemic, continue home meds Qualifiers: Congestive heart failure type: unspecified Congestive heart failure chronicity: chronic Qualified Code(s): I50.9 - Heart failure, unspecified (3) Hypertension Current visit: Yes Status: Chronic continue home meds Qualifiers: Hypertension type: essential hypertension Qualified Code(s): I10 - Essential (primary) hypertension (4) Hyponatremia Current visit: Yes Status: Acute chronic, stable, possibly from SIADH from her chronic lung diseases, she is also on diuretics at home, she is asymptomatic continue to monitor (5) Tobacco abuse Current visit: Yes Status: Chronic cessation encouraged declined NRT (6) Interstitial lung disease Current visit: Yes Status: Chronic continue home MDIS and inhalers Not in a flare at this time Continue home O2 supplementation Internal Medicine - H&P: HPI Chief complaint: chest pain Admitted From: Home Plans for Post Hospital Care: Home History of present illness: Ms. Wilson is a 66 year old female with PMH of COPD, ILD, Tobacco abuse, chronic respiratory failure on nocturnal home O2, HTN, anxiety/Depression, GERD She presented to the ER with complains of non-radiating, substernalchest pain, she stated she had 2 episodes of chest pain which all started today, first one was 3 hrs prior to presentation and this recurred 2 hrs later, said to be dull and non-radiating. She denies associated nausea or vomiting, no shortness of breath above her baseline. She denies neck or jaw pain, no dizziness, no neurologic symptoms prior to presentation Chest pain resolved spontaneously both times She has had ILD for several years and does not currently have a cough. she also has Emphysema and smokes daily She denies recent travels She denies orthopnea, leg swelling, PND, hemoptysis She has no GI symptoms She also reports drinking more liquid in the past few days. She denies changes in urinary symptoms Other ROS is negative Past Med Surg Social Fam HX - Past Medical History Medical history: COPD, GERD, hypertension, other (ILD) Psychiatric history: anxiety, depression - Past Surgical History Surgical History: , cataract, hysterectomy, orthopedic, other - Social History Smoking Status: Current every day smoker Smokeless Tobacco Status: No Alcohol use: none Drug use: none Internal Medicine - H&P: Meds Sertraline [Zoloft] 100 mg PO DAILY 06/22/15 [History] ALPRAZolam [Xanax 1 MG Tablet] 1 mg PO BID 04/11/16 [History] Atenolol [Tenormin] 50 mg PO BID 04/11/16 [History] Metoclopramide [Reglan] 10 mg PO HS 04/11/16 [History] Pregabalin [Lyrica] 150 mg PO TID 04/11/16 [History] Ranitidine HCl [Zantac] 150 mg PO HS 04/11/16 [History] Trazodone HCl 150 mg PO HS 04/11/16 [History] amLODIPine [Norvasc] 5 mg PO DAILY 04/11/16 [History] Albuterol Neb [Proventil Neb] 2.5 mg IH TID PRN 02/01/17 [History] Cholecalciferol (Vitamin D3) [Vitamin D3] 1,000 mg PO DAILY 02/01/17 [History] Fluticasone Propionate Nasal [Flonase] 1 spray NS DAILY 02/01/17 [History] Fluticasone/Vilanterol [Breo Ellipta 200-25 Mcg INH] 1 puff IH DAILY 02/01/17 [ History] Omeprazole [PriLOSEC] 20 mg PO BID 02/01/17 [History] Oxygen 3 l NS HS 02/01/17 [History] Acetaminophen [Tylenol] 650 mg PO Q6HR PRN tablet 02/02/17 [Rx] Acetylcysteine [Nac] 600 mg PO BID 05/31/17 [History] Montelukast [Singulair] 10 mg PO DAILY 05/31/17 [History] Triamterene/HCTZ 37.5/25mg [Dyazide] 1 each PO DAILY 05/31/17 [History] Valacyclovir HCl [Valtrex] 1,000 mg PO DAILY 05/31/17 [History] 3 Allergy/AdvReac Type Severity Reaction Status Date / Time Diclofenac [From Voltaren] AdvReac Rash Verified 05/31/17 12:27 Penicillins [PCN] AdvReac Rash Verified 05/31/17 12:27 propoxyphene [From Darvon] AdvReac Rash Verified 05/31/17 12:27 All Systems PM: A 10-system review of systems was performed and is negative for pertinent findings except as documented above in the HPI. - Constitutional Constitutional: as per HPI - EENT Eyes: as per HPI Ears: as per HPI Nose, mouth and throat: as per HPI - Cardiovascular Cardiovascular ROS IM: as per HPI - Respiratory Respiratory: as per HPI - Gastrointestinal Gastrointestinal: as per HPI - Genitourinary Genitourinary: as per HPI - Musculoskeletal Musculoskeletal ROS IM: as per HPI - Integumentary Integumentary IM: as per HPI - Neurological Neurological ROS: as per HPI - Hematologic/Lymphatic Hematologic/Lymphatic: as per HPI - Constitutional Vitals: Temp Pulse Resp BP Pulse Ox 98.1 F 56 18 138/82 99 05/31/17 11:57 05/31/17 14:02 05/31/17 14:02 05/31/17 14:02 05/31/17 14:02 General appearance: Present: A&O X 3, pleasant, no acute distress - Head Head exam: Present: atraumatic, normocephalic - Eye Eye exam: Present: PERRL, conjuntiva pink, sclera anicteric Pupils: Present: PERRL - Neck Neck exam general surgery: Present: supple, trachea midline. Absent: lymphadenopathy - Respiratory Respiratory exam: Present: CTAB. Absent: accessory muscle use, rales, rhonchi, wheezes Additional comments: no chest wall tenderness - Cardiovascular Cardiovascular exam: Present: RRR, +S1, +S2. Absent: diastolic murmur, gallop, rubs, systolic murmur - GI/Abdominal GI/Abdominal exam: Present: bruit, normal bowel sounds, soft, no peritoneal signs. Absent: distended, tenderness - Extremities Exam Extremities exam: Present: warm, radial pulses palpable and symmetrical. Absent : calf tenderness, cyanotic, pedal edema - Neurological Exam Neurological exam: Present: alert, CN II-XII intact, oriented X3, no focal deficits. Absent: pronater drift, facial droop, speech deficit - Skin Skin exam: Present: dry, intact Internal Med - H&P Results - Labs CBC & Chem 7: 05/31/17 12:15 05/31/17 12:15
[2017-05-31] MEDS ORDERED: *HR* Heparin 5,000 UNIT/ML VIAL IVP PRN ×2 (18:30)
[2017-05-31 19:20] LABS: Hematocrit 33.8 % (35.3-44.9); Hemoglobin 11.7 g/dL (11.5-15.4); Mean Corpuscular HGB Conc 34.6 g/dL (31.6-35.5); Mean Corpuscular Hemoglobin 31.6 pg (28.0-33.3); Mean Corpuscular Volume 91.4 fL (83.0-100.0); Platelet Count 377 K/mcL (140-400); Red Cell Distribution Width 13.2 % (11.5-14.5)
[2017-05-31 19:22] LABS: INR 1.1; Prothrombin Time 11.7 Seconds (9.4-12.1)
[2017-05-31 19:25] LABS: Activated Partial Thrombo Time 44.1 Seconds (26.0-36.0)
[2017-05-31] MEDS: *HR* Acetylcysteine 20% 600 MG/3 ML ORAL SYRINGE PO SCH (20:57)
[2017-05-31] MEDS: ALPRAZolam 1 MG TABLET PO SCH (20:57)
[2017-05-31] MEDS: Famotidine 20 MG TABLET PO SCH (20:58)
[2017-05-31] MEDS: Pregabalin 75 MG CAPSULE PO SCH (20:58)
[2017-05-31] MEDS: traZODone 50 MG TABLET PO SCH (20:58)
[2017-05-31] MEDS: Heparin 25,000 UNIT/500 ML D5W 25,000 UNIT/500 ML BAG IVC SCH (21:11)
[2017-05-31] MEDS: Fluticasone Propionate Nasal 50 MCG/SPRAY BOTTLE NS SCH (22:23)
[2017-06-01 01:22] LABS: Basophils # 0.1 K/mcL (0.0-0.2); Basophils % 1.7 %; Eosinophils # 0.3 K/mcL (0.0-0.6); Hematocrit 33.5 % (35.3-44.9); Hemoglobin 11.4 g/dL (11.5-15.4); Immature Granulocytes % 0.4 % (0-4); Immature Platelets 4.9 % (1.1-6.1); Lymphocytes % 36.6 %; Mean Corpuscular Hemoglobin 31.1 pg (28.0-33.3); Mean Corpuscular Volume 91.5 fL (83.0-100.0); Mean Platelet Volume 10.2 fL (9.4-12.4); Monocytes # 0.8 K/mcL (0.0-1.3); Monocytes % 9.4 %; Platelet Count 373 K/mcL (140-400); Red Blood Count 3.66 M/mcL (3.82-4.97); Red Cell Distribution Width 13.2 % (11.5-14.5); Segmented Neutrophils % 48.9 %
[2017-06-01 02:03] LABS: BUN/Creatinine Ratio 21 (6-26); Blood Urea Nitrogen 11 mg/dL (8-23); Calcium 8.9 mg/dL (8.6-10.3); Carbon Dioxide 26 mEq/L (23-29); Chloride 103 mEq/L (98-107); Chol/HDL Ratio 5.7 (0-4.9); Cholesterol 269 mg/dL (< 200); Glucose 96 mg/dL (70-105); HDL Cholesterol 47 mg/dL (40-59); LDL Cholesterol,Calculated 194 mg/dL (0-99); Osmolality,Calculated 275 (280-300); Potassium 3.7 mEq/L (3.5-5.1); Sodium 133 mEq/L (136-145); Triglycerides 140 mg/dL (< 150); eGFR For African Americans > 60 (> 60); eGFR For Non-African Americans > 60 (> 60)
[2017-06-01] MEDS: Pregabalin 75 MG CAPSULE PO SCH ×3 (10:24→20:55)
[2017-06-01] MEDS: valACYclovir 500 MG TABLET PO SCH (10:24)
[2017-06-01] MEDS: Aspirin Enteric Coated 81 MG Tablet PO SCH (10:24)
[2017-06-01] MEDS: amLODIPine 5 MG TABLET PO SCH (10:24)
[2017-06-01] MEDS: Cholecalciferol (D-3) 1,000 UNIT TABLET PO SCH (10:24)
[2017-06-01] MEDS: *HR* Acetylcysteine 20% 600 MG/3 ML ORAL SYRINGE PO SCH ×2 (10:25→20:55)
[2017-06-01] MEDS: ALPRAZolam 1 MG TABLET PO SCH ×2 (10:25→20:55)
[2017-06-01] MEDS: Nicotine 2 MG GUM BC PRN ×2 (11:49→15:35)
[2017-06-01] MEDS ORDERED: 0.9 % Sodium Chloride 1,000 ML ONE (12:55)
--- NOTE | 2017-06-01 13:55 | Cardiology Consult Note ---
<Abeba Cota Luis - Last Filed: 06/01/17 13:55> Date of Encounter: 06/01/17 Time of Encounter: 13:40 Assessment and Plan (1) NSTEMI (non-ST elevated myocardial infarction) Current Visit: Yes Status: Acute Peak troponin 0.11 with downward trend. No acute ECG changes noted. Typical chest pain symptoms for the past 2.5 weeks. Pain free upon exam. Systolic function reduced per TTE in 2016, patient reports she had "lung issues" at the time and was going to wait until resolved prior to work-up. Recommend LHC with possible PCI, alternatives, risks, and benefits discussed, she is agreeable to proceed. Recheck TTE to eval LVEF. Continue heparin gtt, asa, statin, and betablocker. NPO after MN except medications. Cardiac rehab consult. Will continue to follow. (2) Cardiomyopathy Current Visit: Yes Status: Acute EF 40% per TTE 2016. Unclear chronicity or etiology. Euvolemic upon exam. Qualifiers: Cardiomyopathy type: unspecified Qualified Code(s): I42.9 - Cardiomyopathy , unspecified (3) Tobacco abuse Current Visit: Yes Status: Chronic Tobacco cessation encouraged. Discussion w patient/family: The assessment and plan as outlined above was discussed with the patient and/or family members who expressed understanding and agreement. All questions were answered. Thank you for involving us in the care of your patient. Please call with any questions. History of Present Illness Consult date: 06/01/17 Requesting physician: Kody Parham Consult reason: NSTEMI Chief complaint: Chest pain History of present illness: Ms. Wilson is a 66 year old female with PMHx significant for ILD, tobacco use, HTN, COPD (nocturnal o2), and GERD who presented to the ED with complaints of midsternal chest pressure/heaviness. Patient reports symptoms have been ongoing for the past 2 weeks but worsened the past 2 days. Chest pain described as pressure/squeezing with radiation across chest and down bilateral arms. Associated symptoms include diaphoresis and shortness of breath. Each episode would last 15-20 minutes. Prior CV testing: TTE 02/2017: EF 40%, mildly dilated LV, mid anterior, mid inferior septal, and mid anterior lateral tripathi were hypokinetic Exercise nuclear stress 11/08/2014: perfusion imaging negative for ischemia or infarct, exercise ECG negatived, gated EF >70% Past Med Surg Social Fam HX - Past Medical History Attestation: Yes The following information was validated with the patient. Source: patient Medical history: cardiomyopathy (EF 40% 02/2017), COPD, GERD, hyperlipidemia, hypertension, other (ILD) Psychiatric history: anxiety, depression - Past Surgical History Surgical History: , cataract, hysterectomy, orthopedic, other - Social History Smoking Status: Current every day smoker Packs per day: 1 Smokeless Tobacco Status: No Alcohol use: none Drug use: none - Family History Mother Hx Family Cardiac Disorders: Yes Father Hx Family Cardiac Disorders: Yes Medications and Allergies Sertraline [Zoloft] 100 mg PO DAILY 06/22/15 [History] ALPRAZolam [Xanax 1 MG Tablet] 1 mg PO BID 04/11/16 [History] Atenolol [Tenormin] 50 mg PO BID 04/11/16 [History] Metoclopramide [Reglan] 10 mg PO HS 04/11/16 [History] Pregabalin [Lyrica] 150 mg PO TID 04/11/16 [History] Ranitidine HCl [Zantac] 150 mg PO HS 04/11/16 [History] Trazodone HCl 150 mg PO HS 04/11/16 [History] amLODIPine [Norvasc] 5 mg PO DAILY 04/11/16 [History] Albuterol Neb [Proventil Neb] 2.5 mg IH TID PRN 02/01/17 [History] Cholecalciferol (Vitamin D3) [Vitamin D3] 1,000 mg PO DAILY 02/01/17 [History] Fluticasone Propionate Nasal [Flonase] 1 spray NS DAILY 02/01/17 [History] Fluticasone/Vilanterol [Breo Ellipta 200-25 Mcg INH] 1 puff IH DAILY 02/01/17 [ History] Omeprazole [PriLOSEC] 20 mg PO BID 02/01/17 [History] Oxygen 3 l NS HS 02/01/17 [History] Acetaminophen [Tylenol] 650 mg PO Q6HR PRN tablet 02/02/17 [Rx] Acetylcysteine [Nac] 600 mg PO BID 05/31/17 [History] Montelukast [Singulair] 10 mg PO DAILY 05/31/17 [History] Triamterene/HCTZ 37.5/25mg [Dyazide] 1 each PO DAILY 05/31/17 [History] Valacyclovir HCl [Valtrex] 1,000 mg PO DAILY 05/31/17 [History] 3 Allergy/AdvReac Type Severity Reaction Status Date / Time Diclofenac [From Voltaren] AdvReac Rash Verified 05/31/17 12:27 Penicillins [PCN] AdvReac Rash Verified 05/31/17 12:27 propoxyphene [From Darvon] AdvReac Rash Verified 05/31/17 12:27 All Systems Review: A 10-system review of systems was performed and is negative for pertinent findings except as documented above in the HPI. - Cardiovascular Cardiovascular: as per HPI Physical Examination Vital Signs, Last 4 Hours Temp Pulse Resp BP Pulse Ox 06/01/17 10:50 98.1 F 59 16 135/78 94 General: Conversant, No Apparent Distress HEENT: Atraumatic, Normocephaly, Mucus Membranes Moist Cardiac: Reg Rate and Rhythm, Normal S1 and S2 Lungs: Normal Breath Sounds, No Wheeze, Rales, Rhonchi Neuro: Alert and responsive Abdomen: Soft Skin: No rashes noted on visualized skin Musculoskeletal: No Chest Wall Tenderness Extremities: No Edema, Normal Pulses Results 06/01/17 00:53 06/01/17 00:53 Lab Results 06/01/17 06/01/17 06/01/17 00:53 00:53 00:53 WBC 8.3 Hgb 11.4 L Hct 33.5 L Plt Count 373 APTT Sodium 133 L Potassium 3.7 Chloride 103 Carbon Dioxide 26 BUN 11 Creatinine 0.53 L Glucose 96 Calcium 8.9 Troponin I 0.06 H* 06/01/17 06/01/17 03:41 11:41 WBC Hgb Hct Plt Count APTT 104.5 H D 97.5 H Sodium Potassium Chloride Carbon Dioxide BUN Creatinine Glucose Calcium Troponin I Active Medications Acetaminophen (Tylenol) 650 mg PO Q6HR PRN PRN Reason: Mild Pain (1-3) Stop: 11/30/17 16:04 Acetylcysteine (Acetylcysteine 20%) 600 mg PO BID KEVIN Stop: 11/30/17 21:01 Last Admin: 06/01/17 10:25 Dose: 600 mg Albuterol Sulfate (Proventil Neb) 2.5 mg IH TIDR PRN; Protocol PRN Reason: Shortness Of Breath Stop: 11/30/17 16:04 Alprazolam (Xanax) 1 mg PO BID KEVIN PRN Reason: Protocol Stop: 11/30/17 21:01 Last Admin: 06/01/17 10:25 Dose: 1 mg Amlodipine Besylate (Norvasc) 5 mg PO DAILY KEVIN PRN Reason: Protocol Stop: 12/01/17 09:01 Last Admin: 06/01/17 10:24 Dose: 5 mg Aspirin (Aspirin Ec) 81 mg PO DAILY KEVIN Stop: 12/01/17 09:01 Last Admin: 06/01/17 10:24 Dose: 81 mg Atenolol (Tenormin) 50 mg PO BID EKVIN Stop: 11/30/17 21:01 Last Admin: 06/01/17 10:24 Dose: 50 mg Atorvastatin Calcium (Lipitor) 40 mg PO HS [facility] Stop: 11/30/17 21:01 Last Admin: 05/31/17 20:57 Dose: Not Given Famotidine (Pepcid) 20 mg PO HS [facility] Stop: 11/30/17 21:01 Last Admin: 05/31/17 20:58 Dose: 20 mg Fluticasone Propionate (Flonase) 50 mcg NS HS [facility] PRN Reason: Protocol Stop: 11/30/17 22:16 Last Admin: 05/31/17 22:23 Dose: 50 mcg Heparin Sodium (Porcine) (Heparin) 4,000 unit IVP Q6HR PRN PRN Reason: SEE COMMENTS Stop: 11/30/17 18:31 Heparin Sodium (Porcine) (Heparin) 2,000 unit IVP Q6H PRN PRN Reason: SEE COMMENTS Stop: 11/30/17 18:31 Heparin Sodium/Dextrose (Heparin 25,000 Unit/500 Ml D5w) 25,000 unit in 500 mls @ 18.418 mls/hr IVC .Q24H KEVIN; 12 UNIT/KG/HR PRN Reason: Protocol Stop: 11/30/17 18:31 Last Titration: 06/01/17 12:47 Dose: 8.07 unit/kg/hr, 12.4 mls/hr Metoclopramide HCl (Reglan) 10 mg PO HS [facility] Stop: 11/30/17 21:01 Last Admin: 05/31/17 20:57 Dose: 10 mg Montelukast Sodium (Singulair) 10 mg PO DAILY KEVIN Stop: 12/01/17 09:01 Last Admin: 06/01/17 10:24 Dose: 10 mg Morphine Sulfate (Morphine Sulfate) 2 mg IVP Q4HR PRN PRN Reason: Severe Pain (7-10) Stop: 11/30/17 16:06 Naloxone HCl (Narcan) 0.4 mg IVP Q2MIN PRN PRN Reason: Opioid Reversal Stop: 11/30/17 16:06 Nicotine Polacrilex (Nicorette Gum) 2 mg BC Q2H PRN PRN Reason: Nicotine Cravings Stop: 12/01/17 10:43 Last Admin: 06/01/17 11:49 Dose: 2 mg Omeprazole (Prilosec) 20 mg PO BID KEVIN PRN Reason: Protocol Stop: 11/30/17 21:01 Last Admin: 06/01/17 10:24 Dose: 20 mg Oxycodone HCl (Roxicodone) 5 mg PO Q6HR PRN PRN Reason: Moderate Pain (4-6) Stop: 11/30/17 16:06 Pharmacy Profile Note (Patient Taking Own Medication) 1 each IH HS KEVIN Stop: 11/30/17 21:01 Last Admin: 05/31/17 22:20 Dose: 1 each Pregabalin (Lyrica) 150 mg PO TID KEVIN Stop: 11/30/17 21:01 Last Admin: 06/01/17 10:24 Dose: 150 mg Sertraline HCl (Zoloft) 100 mg PO DAILY KEVIN Stop: 12/01/17 09:01 Last Admin: 06/01/17 10:24 Dose: 100 mg Trazodone HCl (Trazodone) 150 mg PO HS KEVIN Stop: 11/30/17 21:01 Last Admin: 05/31/17 20:58 Dose: 150 mg Triamterene/HCTZ (Dyazide) 1 each PO DAILY KEVIN Stop: 12/01/17 09:01 Last Admin: 06/01/17 10:24 Dose: 1 each Valacyclovir HCl (Valtrex) 1,000 mg PO DAILY KEVIN Stop: 12/01/17 09:01 Last Admin: 06/01/17 10:24 Dose: 1,000 mg Vitamin D (Vitamin D) 1,000 unit PO DAILY KEVIN Stop: 12/01/17 09:01 Last Admin: 06/01/17 10:24 Dose: 1,000 unit - Imaging and Cardiology Echo: pending - EKG Interpretation EKG results cardiology: personally reviewed Consult Discharge Plan - Plan Referrals: Alvarado Amor Jr, MD [Primary Care Provider] - <Stef Cordova - Last Filed: 06/01/17 14:52> Date of Encounter: 06/01/17 - Attending Attestation I have personally performed a face to face evaluation on this patient. I have reviewed and agree with the care plan. History and Exam by me shows: CC: Chest pain Pt presents to ER with complaint of mid epigastric chest pain, provoked by exercise, lasts five to fifteen minutes, associated with mild shortness of breath and diaphoresis, relieved with rest. She was having episodes every few days, but has noticed increase in frequency and severity over the last two weeks , now having to limit activity to avoid provocation of chest pain. She reports last episode of chest pain occurred the day of admission, with more profound pain with radiation down both arms and into her neck, required twenty minutes of rest for paint to resolve. She has not had reoccurence of symptoms since admission. PE: reviewed above, agree, IMP: 1. NSTEMI; Chest pain resolved, troponins not climbing, EKG non-specific changes , discussed LHC/poss as invasive strategy versus continued medical tx, pt notes was hospitalized in March and has not improved, elects to proceed with invasive strategy, will plan on [facility] poss in AM. Initiate optimal medical tx. 2. Cardiomyopathy, unclear etiology, suspect is ischemic, EF 40% Mar 2017, will reassess left ventriculogram at [facility] tomorrow. 3. Tobacco abuse, greater than 100 pack years, now down to 15 to 20 cigs q d, discussed smoking cessation, prefer to use Nicorette for now. 4. Hypertension: controlled on current meds, continue to monitor 5. GERD _ pt notes presenting chest pain is recogonizable as different from GERD pain 6. COPD - moderate, management by primary service, is able to lie flat. Assessment and Plan Discussion w patient/family: The assessment and plan as outlined above was discussed with the patient and/or family members who expressed understanding and agreement. All questions were answered. Thank you for involving us in the care of your patient. Please call with any questions. History of Present Illness History of present illness: Ms. Wilson is a 66 year old female All Systems Review: A 10-system review of systems was performed and is negative for pertinent findings except as documented above in the HPI. Physical Examination Vital Signs, Last 4 Hours Temp Pulse Resp BP Pulse Ox 06/01/17 10:50 98.1 F 59 16 135/78 94 Results 06/01/17 00:53 06/01/17 00:53 Lab Results 06/01/17 06/01/17 06/01/17 00:53 00:53 00:53 WBC 8.3 Hgb 11.4 L Hct 33.5 L Plt Count 373 APTT Sodium 133 L Potassium 3.7 Chloride 103 Carbon Dioxide 26 BUN 11 Creatinine 0.53 L Glucose 96 Calcium 8.9 Troponin I 0.06 H* 06/01/17 06/01/17 03:41 11:41 WBC Hgb Hct Plt Count APTT 104.5 H D 97.5 H Sodium Potassium Chloride Carbon Dioxide BUN Creatinine Glucose Calcium Troponin I
--- NOTE | 2017-06-01 17:25 | Internal Med Progress Note ---
Date of Encounter: 06/01/17 Time of Encounter: 09:30 - Assessment and plan (1) NSTEMI (non-ST elevated myocardial infarction) Current Visit: Yes Status: Acute Assessment and plan: presented with chest pain. Troponin peaked at 0.11 and trended down. No acute EKG changes. Continue heparin drip started on arrival. Nothing by mouth at midnight. LHC in the morning. Cardiology following. Cont ASA, statin, BB. (2) Cardiomyopathy Current Visit: Yes Status: Acute Assessment and plan: per hx. EF 40% per TTE 2016. . Unclear chronicity or etiology. . Euvolemic. Cont home diuretics. Cardiology following Qualifiers: Cardiomyopathy type: unspecified Qualified Code(s): I42.9 - Cardiomyopathy , unspecified (3) DVT prophylaxis Current Visit: No Status: Acute Assessment and plan: heparin gtt - Subjective Interval history: Seen and examined at bedside. Patient is new to me. Information obtained from chart review and patient report. Patient says she feels better now, no chest pain. No shortness of breath. She apparently went off the floor earlier to smoke and was advised not to do so. She is aware of left heart catheter in the morning. - Constitutional Vitals: Temp Pulse Resp BP Pulse Ox 98.1 F 56 16 107/69 98 06/01/17 15:24 06/01/17 15:24 06/01/17 15:24 06/01/17 15:24 06/01/17 15:24 General appearance: Present: A&O X 3, pleasant, no acute distress - Head Head exam: Present: atraumatic, normocephalic - Eye Eye exam: Present: PERRL, conjuntiva pink, sclera anicteric Pupils: Present: PERRL - Neck Neck exam general surgery: Present: supple, trachea midline. Absent: lymphadenopathy - Respiratory Respiratory exam: Present: CTAB. Absent: accessory muscle use, rales, rhonchi, wheezes - Cardiovascular Cardiovascular exam: Present: RRR, +S1, +S2. Absent: diastolic murmur, gallop, rubs, systolic murmur - GI/Abdominal GI/Abdominal exam: Present: normal bowel sounds, soft, no peritoneal signs. Absent: distended, tenderness - Extremities Exam Extremities exam: Present: warm, radial pulses palpable and symmetrical. Absent : calf tenderness, cyanotic, pedal edema - Neurological Exam Neurological exam: Present: CN II-XII intact, oriented X3, no focal deficits. Absent: pronater drift, facial droop, speech deficit - Skin Skin exam: Present: dry, intact Internal Medicine: Result - Labs CBC & Chem 7: 06/01/17 00:53 06/01/17 00:53 Labs: Short CBC 06/01/17 Range/Units 00:53 WBC 8.3 (4.3-11.1) K/mcL Hgb 11.4 L (11.5-15.4) g/dL Hct 33.5 L (35.3-44.9) % Plt Count 373 (140-400) K/mcL Neutrophils # 4.0 (1.6-8.9) K/mcL BMP 06/01/17 00:53 Sodium 133 L Potassium 3.7 Chloride 103 Carbon Dioxide 26 BUN 11 Creatinine 0.53 L Glucose 96 Calcium 8.9 Cardiac Enzymes 06/01/17 Range/Units 00:53 Troponin I 0.06 H* (< 0.04) ng/mL - ABG Interpretation ABG results: PT/INR, D-dimer PT 11.7 Seconds (9.4-12.1) 05/31/17 18:55 D-Dimer 850 ng/mLFEU (0-500) H 05/31/17 12:15 Consult Discharge Plan - Plan Referrals: Alvarado Amor Jr, MD [Primary Care Provider] -
[2017-06-01] MEDS: Famotidine 20 MG TABLET PO SCH (20:54)
[2017-06-01] MEDS: traZODone 50 MG TABLET PO SCH (20:54)
[2017-06-01] MEDS: Fluticasone Propionate Nasal 50 MCG/SPRAY BOTTLE NS SCH (20:57)
[2017-06-02 00:56] LABS: Hematocrit 32.3 % (35.3-44.9); Hemoglobin 10.8 g/dL (11.5-15.4); Mean Corpuscular HGB Conc 33.4 g/dL (31.6-35.5); Mean Corpuscular Volume 92.8 fL (83.0-100.0); Mean Platelet Volume 9.6 fL (9.4-12.4); Platelet Count 346 K/mcL (140-400); Red Blood Count 3.48 M/mcL (3.82-4.97); Red Cell Distribution Width 13.4 % (11.5-14.5)
[2017-06-02 01:20] LABS: BUN/Creatinine Ratio 17 (6-26); Blood Urea Nitrogen 11 mg/dL (8-23); Calcium 8.5 mg/dL (8.6-10.3); Carbon Dioxide 26 mEq/L (23-29); Chloride 98 mEq/L (98-107); Glucose 104 mg/dL (70-105); Osmolality,Calculated 268 (280-300); Potassium 3.8 mEq/L (3.5-5.1); Sodium 129 mEq/L (136-145); eGFR For African Americans > 60 (> 60); eGFR For Non-African Americans > 60 (> 60)
[2017-06-02 01:29] LABS: Hemoglobin A1C 4.9 %
[2017-06-02] MEDS: amLODIPine 5 MG TABLET PO SCH (07:59)
[2017-06-02] MEDS: Aspirin Enteric Coated 81 MG Tablet PO SCH (07:59)
[2017-06-02] MEDS: valACYclovir 500 MG TABLET PO SCH (07:59)
[2017-06-02] MEDS: ALPRAZolam 1 MG TABLET PO SCH ×2 (07:59→21:48)
[2017-06-02] MEDS: Pregabalin 75 MG CAPSULE PO SCH ×3 (08:00→21:47)
[2017-06-02] MEDS: Cholecalciferol (D-3) 1,000 UNIT TABLET PO SCH (08:00)
[2017-06-02] MEDS: *HR* Acetylcysteine 20% 600 MG/3 ML ORAL SYRINGE PO SCH ×2 (08:01→21:59)
[2017-06-02] MEDS ORDERED: 0.9 % Sodium Chloride 1,000 ML IV.SOLN IV ONE (09:27)
[2017-06-02] MEDS ORDERED: *HR* OxyCODONE Immed Rel 5 MG TABLET PO PRN (10:26)
[2017-06-02] MEDS ORDERED: Heparin 1,000 UNITS/500 mL 500 ML ONE (11:50)
[2017-06-02] MEDS ORDERED: 0.9 % Sodium Chloride 1,000 ML ONE (11:50)
[2017-06-02] MEDS ORDERED: Nitroglycerin 1,000 MCG/10 ML VIAL IV ONE (11:50)
[2017-06-02] MEDS ORDERED: *HR* Heparin 10,000 UNIT/10 ML VIAL ONE (11:50)
[2017-06-02] MEDS ORDERED: *HR* Midazolam HCl 2 MG/2 ML VIAL ONE (12:17)
[2017-06-02] MEDS ORDERED: *HR* FentaNYL (PF) 100 MCG/2 ML VIAL ONE (12:18)
[2017-06-02] MEDS ORDERED: *HR* Atropine Sulfate 1 MG/10 ML SYRINGE ONE (12:26)
[2017-06-02] MEDS ORDERED: Tirofiban 5 MG/100 mL 5 MG/100 ML VIAL IV ONE (12:26)
--- NOTE | 2017-06-02 12:51 | Pre-Sedation Evaluation ---
Pre-sedation evaluation - Pre-sedation checklist Date of procedure: 06/02/17 Procedure: left heart cath Recent Vitals: Last Vital Signs Temp 98.2 F 06/02/17 11:55 Pulse 51 06/02/17 11:55 Resp 17 06/02/17 11:55 BP 102/62 06/02/17 11:55 Pulse Ox 99 06/02/17 11:55 H&P (including ROS) documented in medical record: Yes Previous reaction to sedatives/anesthetics: No Dietary Status: NPO after Midnight Dentition: dentures removed ASA Classification *see protocol: CLASS II-Mild systemic disease Plan of Care: Pt appropriate candidate for procedure/moderate/conscious sedation
[2017-06-02] MEDS ORDERED: *HR* Ticagrelor 90 MG TABLET ONE (12:59)
[2017-06-02] MEDS ORDERED: Tirofiban 12.5 MG/250ML 12.5 MG/250 ML BAG IVC SCH (13:00)
--- NOTE | 2017-06-02 13:03 | Invasive Diagnostic Lab Proc ---
Name: Tameka Wilson Date of Study: 06/02/2017 Date: 1950 Ht: 61.8in Medical Record#: [id number] Age: 66 Wt: 167.33lb Gender: Female BSA: 1.77 Order #: [id number] BMI: 30.79 Physicians Procedure Physician: Alphonso Whitney MD Referring MD: Referring MD: Staff Name Position Time In Bernie Haley RT (R) Scrub 12:11 PM Aline Cornelius RN Metal Solderer 12:11 PM Tara Pack RT Monitor 12:11 PM Indications Indication Non-Stemi Procedures Performed Procedure L HRT ARTERY/VENTRICLE ANGIO PRQ CARD MEME STENT W/ANGIO 1 VSL Pre-Procedure Checklist Informed consent is complete signed and on chart. H&P is on chart. ID band is on and ID verified with patient. Patient NPO for procedure The procedure was described for the patient and questions were answered. Blood Pressure: 104/66 ECG is on chart. Rhythm: Sinus Bradycardia Plan of Care Patient will tolerate the procedure without complications. Adequate level of comfort will be maintained. Hemodynamics will remain stable Patient will recover from procedure without complications. Respiratory function will be maintained. Cardiac rhythm will remain stable. Patient temperature will be maintained. Patient and/or family have verbalized understanding of the procedure. Patient Education Chief Complaint/Reason for Test: Cardiac Cath Developmental Category: Geriatric (65+ years) Developmentally Appropriate for Age: Yes Learning Barriers: None Education Needs: Procedure Education Method: Verbal Information Taught: Cardiac Cath Educational Evaluation: Able to repeat information Intravenous Access Time IV Size Location DC'd Fluid/Drip Rate Units RN 20g 1 05/08" Patent On Arrival Lt Antecubital Allergies Penicillins propoxyphene Diclofenac PCN (penicillin) DICLOFENAC - XR Vital Signs Time BP (mmHg) HR (bpm) O2 Sat. RR (bpm) LOC 12:21 PM / % 5 = Fully awake and oriented or at pre-proc level 12:21 PM / % 4 = Oriented but drowsy 12:20 PM 129 / 78 46 97 % 9 12:25 PM 135 / 71 47 100 % 12:29 PM 122 / 75 52 98 % 12:34 PM 116 / 69 54 100 % 12:39 PM 112 / 68 54 98 % 13 12:44 PM 118 / 70 61 97 % 13 12:50 PM 134 / 81 54 100 % 9 Procedural Medications Time Medication Dose Units Method Given By 12:21 PM Oxygen 2 L/min nasal cannula Aline Cornelius RN 12:21 PM Versed 1 mg Intravenous Aline Cornelius RN 12:21 PM Fentanyl 50 mcg Intravenous Aline Cornelius RN 12:25 PM Lidocaine 2% 10 ml Subcutaneous Alphonso Whitney MD 12:35 PM Heparin 3500 units Intravenous Aline Cornelius RN 12:35 PM Aggrastat Bolus: 37.5 ml Intravenous Aline Cornelius RN 12:35 PM Aggrastat 5mg/100ml 13.5 ml Intravenous Aline Cornelius RN 12:37 PM Fentanyl 25 mcg Intravenous Aline Cornelius RN 12:47 PM Brilinta 180 mg Orally Aline Cornelius RN ASA Classification: CLASS II- Mild systemic disease (i.e. well-controlled diabetes, hypertension, asthma, cigarette smoking) Marie Score Preprocedure Postprocedure Activity 2- Moves 4 extremities sustained head lift Activity Circulation 2- SBP +/= 20 points of pre-anesthetic level Circulation Consciousness 2- Awake and alert oriented x 3 Consciousness O2 Saturation 2- Able to maintain O2 satruation of 92% on room air O2 Saturation Respiratory 2- Able to deep breathe and cough well Respiratory Total Score 10 Total Score Contrast Agent: Isovue Diagnostic Contrast: 61 ml Total Contrast: 61 ml Fluoro Dose: 252 mGy Activated Clotting Time Time Seconds to Clot 12:34 PM 146 Procedure Log Time Note Enter By 12:11 PM Pt arrived to labeling associate 2 at 12:10 [facility] 12:11 PM Bernie Haley RT (R) Position: Scrub [facility]: [facility] Aline Cornelius RN Position: Metal Solderer [facility] 12[facility]11 [facility] PM Tara Pack RT Position: Monitor Time in: 12:11 [facility] 12:12 PM CathStat 12:12 PM Patient charges- Angio tray pack, Navilyst 3mm J, Pulse Oximetry and ACIST tubing and transducer [facility] 12:12 PM IV Supplies used: J loop Angio Cath. [facility] 12:12 PM Case Delayed No [facility] 12:12 PM Hair removed from procedure site in holding area using clippers. Bilateral groin prepped with Chloraprep by Tara Pack RT, safety strap applied then patient was draped. Skin intact. [facility] 12:12 PM Physician arrived 12:12 [facility] 12:12 PM ASA Class CLASS II- Mild systemic disease (i.e. well-controlled diabetes, hypertension, asthma, cigarette smoking) [facility] 12:12 PM Meet and greet completed [facility] 12:12 PM Sign in performed according to hospital policy. [facility] 12:12 PM Procedure start 12: [facility] 12:19 PM Vitals capture started with the following parameters, Patient=Adult, Interval=5 min, Initial Ltxzllka=037 mmHg, Deflation Rate=5 mmHg, Cuff placed on Right Arm 12:20 PM HR=46 bpm, OVTI=702/78 mmhg, SpO2=97 %, Resp=9 B/min 12: PM Time: 12: Oxygen on at 2 L/min per nasal cannula by Aline Cornelius RN [facility] 12: PM Time: 12: Versed 1 mg Intravenous Given by Aline Cornelius RN [facility] 12: PM Time: 12:21 Fentanyl 50 mcg Intravenous Given by Aline Cornelius RNrebel 12: PM Time: 12:21 Patient comfortable and pain free: Yes [facility] 12: PM Time: 12:LOC: 5 = Fully awake and oriented or at pre-proc level [facility] 12: PM Clinical Presentation: Non-STEMI [facility] 12: PM Pressure channel 1 zero failed. 12:23 PM Pressure channel 1 zero failed. 12: PM Pressure channel 1 zeroed. 12:25 PM HR=47 bpm, VQUJ=239/71 mmhg, MmQ7=327 % 12:25 PM Time out performed according to hospital policy [facility] 12: PM Time: 12:25 10 ml Lidocaine 2% to right groin Subcutaneous Given by Alphonso Whitney MD [facility] 12: PM Micro-Introducer Kit utilized for sheath placement [facility] 12: PM Isovue 370 - 200ml contrast 3 ml given by Alphonso Whitney MD. [facility] : PM Access obtained by percutaneous puncture. 6Fr 10cm Terumo Nitro sheath placed in right Femoral artery. [id number] [facility] 12:27 PM 5Fr FR 4 catheter inserted over the wire [facility] tsoumm[facility] 12:27 PM wire removed [facility] 12:28 PM RCA angiography performed in multiple views. [facility] 12:29 PM Catheter removed [facility] 12:29 PM 5Fr FL 4 catheter inserted over the wire [facility] tsoummers 12:29 PM wire removed [facility] 12:29 PM HR=52 bpm, CEQA=275/75 mmhg, SpO2=98.0 % 12:29 PM LCA angiography performed in multiple views. [facility] 12:30 PM Recorded Pressure: Ao, HR=51, Condition=Condition 1 (Aorta) Ao 125/69/92 12:31 PM Catheter removed tsoummers 12:31 PM 5Fr Pigtail catheter inserted over the wire [facility] tsoummers 12:32 PM wire removed [facility] 12:32 PM Catheter selectively placed in left ventricle [facility] 12:33 PM Recorded Pressure: LV, HR=49, Condition=Condition 1 (Left Ventricle) LV 130/13/19 12:33 PM Recorded Pressure: LV, Ao, HR=52, Condition=Condition 1 (Left Ventricle) LV 129/3/18, (Aorta) Ao 127/58/85 12:33 PM Act drawn tsoummers 12:33 PM Catheter removed ts[facility]mmers 12:34 PM At 12:34 the ACT was 146 seconds. tsoummers 12:34 PM 6Fr JR 4 [place] Bright-Tip guide catheter was used to cannulate the PCI vessel successfully. reused? No [facility] 12:34 PM wire removed ts[facility] 12:34 PM HR=54 bpm, GRHA=629/69 mmhg, DtL9=408.0 %, Comment=sb 12:34 PM Coronary Dominance: right ts[facility]mmers 12:34 PM Lesion found in Proximal LAD. Pre Stenosis: 25 Pre ROBE Flow: tsoummers 12:35 PM Lesion found in Mid Circumflex. Pre Stenosis: 40 Pre ROBE Flow: tsoummers 12:35 PM Lesion found in Mid RCA. Pre Stenosis: 90 Pre ROBE Flow: 3: Complete and Brisk Flow/Perfusion tsoummers 12:35 PM Time: 12:35 Heparin 3500 units Intravenous Given by Aline Cornelius RN [facility] 12:[facility] PM Time: 12:35 Aggrastat Bolus: 37.5 ml Intravenous Given by Aline Cornelius RN Youssef pump [facility] 12:36 PM Time: 12:35 Aggrastat 5mg/100ml 13.5 ml Intravenous Given by Aline Cornelius RN Youssef pump [facility] 12:36 PM .014 [employer] [place] 190cm guide wire across target lesion- successful. reused? No [facility] 12:37 PM Time: 12:21LOC: 4 = Oriented but drowsy [facility] 12:37 PM Time: 12:21 Patient comfortable and pain free: Yes [facility] 12:37 PM Time: 12:37 Fentanyl 25 mcg Intravenous Given by Aline Cornelius RN [facility] 12:37 PM 2.0 mm x 12 mm Emerge Monorail balloon across target lesion- successful. reused? No [facility] 12:38 PM Balloon inflated @ 6 [place] for 9 seconds [facility] 12:38 PM Balloon inflated @ 6 [place] for 9 seconds [facility] 12:38 PM Left Main Coronary Artery with 0% stenosis [facility] 12:38 PM Proximal Left Anterior Descending Coronary Artery with 25% stenosis. If graft is supplying this territory, 0 % stenosis. [facility] 12:38 PM Mid/Distal Left Anterior Descending Coronary Artery and diagonal branches with 0% stenosis. If graft is supplying this area, 0 % stenosis [facility] 12:38 PM Circumflex, Obtuse Marginal, Left Posterior Descending, and Left Posterolateral Coronary Arteries with 40 % stenosis. If graft is supplying this area, 0 % stenosis [facility] 12:38 PM Right Coronary, Right Posterior Descending Arteries with Right Posterolateral and Acute Marginal branches with 90 % stenosis. If graft is supplying this area, 0 % stenosis [facility] 12:38 PM Ramus with 0% stenosis. If graft is supplying this area, 0 % stenosis [facility] 12:39 PM Balloon catheter removed intact. [facility] 12:39 PM HR=54 bpm, WQDI=328/68 mmhg, SpO2=98.0 %, Resp=13 B/min 12:40 PM 3.5mm x 28mm Synergy drug-eluting stent across target lesion- successful Lot #[id number] [facility] 12:41 PM Stent deployed @ 11 [place] for 13 seconds [facility] 12:42 PM Stent balloon reinflated @ 14 [place] for 11 seconds [facility] 12:42 PM Stent balloon reinflated @ 16 [place] for 10 seconds [facility] 12:43 PM Stent delivery system removed intact. [facility] 12:43 PM Recorded Pressure: Ao, HR=60, Condition=Condition 1 (Aorta) Ao 127/67/90 12:44 PM Guide wire removed intact. [facility] 12:44 PM Guide catheter removed intact. [facility] 12:44 PM HR=61 bpm, NGAV=174/70 mmhg, SpO2=97.0 %, Resp=13 B/min 12:45 PM Procedure completed at 12:45 [facility] 12:45 PM Did you address ROBE flow and Dominance? Yes [facility] 12:46 PM Sign out completed: Radiation Dose 252.07 mGy Fluoro Time: 4.7 Isovue 370 - 200ml contrast 61 ml given by Alphonso Whitney MD. Complications: NoneCardiac Rehab Consult needed: YesConfirmed administered medications: Yes [facility] 12:46 PM Isovue 370 - 200ml,1 Bottle(s) used. [facility] 12:47 PM Arterial sheath pulled, Angio-seal closure device used and was Successful [id number] S/N. [facility] 12:48 PM Time: 12:47 Brilinta 180 mg Orally Given by Aline Cornelius RN [facility] 12:48 PM Estimated Blood Loss: minimal [facility] 12:48 PM Post ECG Sinus Bradycardia [facility] 12:48 PM Post Blood Pressure 118/70 [facility] 12:48 PM 12:48 Post Pulses Bilateral DP & PT 2+ [facility] 12:49 PM Information taught Cardiac Cath, PCI, and Angioseal [facility] 12:49 PM Education needs Procedure, Plan of Care, and Responsibilities of Patient in Care [facility] 12:49 PM Learning barriers :None [facility] 12:49 PM Education Methods Verbal [facility] 12:49 PM Education evaluation Able to repeat information [facility] 12:49 PM Site status No bleeding/hematoma - Rt Groin as reported by Bernie Haley RT (R) at 12:49 [facility] 12:49 PM Opsite applied [facility] 12:49 PM Plavix, Effient or Brilinta given Yes [facility] 12:49 PM Delay to floor No ts[facility] 12:49 PM Patient out of room: 12:49 [facility] 12:49 PM Family placed in consult room. [facility] 12:49 PM Complications: None [facility] 12:49 PM Fluoro Time: 4.7 [facility] 12:50 PM Isovue 370 - 200ml contrast 61 ml given by Alphonso Whitney MD. [facility] 12:50 PM Radiation Dose 252.07 mGy [facility] 12:50 PM HR=54 bpm, ATRM=606/81 mmhg, YhK6=713.0 %, Resp=9 B/min 12:52 PM Lesion found in Proximal RCA. Pre Stenosis: 25 Pre ROBE Flow: [facility] 12:56 PM Report given to 3B RN RN Pt taken to 3B Room #64. 12:55 [facility] Complications Complication None None Hemodynamics Pressures Site Systolic/A Wave Diastolic/V Wave Mean AO 125 69 92 LV 130 13 19 LV 129 3 18 AO 127 58 85 AO 127 67 90 Post Procedure Information Blood Pressure: 118/70 mmHg Rhythm: Sinus Bradycardia Post procedural instructions were given Closure Device Time Device Success/Fail 06/02/2017 12:56:00 PM Angio-Seal VIP Site Checks Time Location Status Staff Sheath In? Note 12:49 PM Rt Groin No bleeding/hematoma Bernie Haley RT (R) Pulses Time Site Pre-Procedure Post-Procedure Note Bilateral DP & PT 2+ Bilateral radial 2+ 12:48:00 PM Bilateral DP & PT 2+ Updated by Aline Cornelius RN on 06/02/2017 12:57:52 PM electronically signed on 06/02/2017 12:58:19 PM with status of Final
[2017-06-02 13:57] LABS: Basophils # 0.1 K/mcL (0.0-0.2); Basophils % 1.2 %; Eosinophils # 0.3 K/mcL (0.0-0.6); Eosinophils % 2.5 %; Hemoglobin 10.1 g/dL (11.5-15.4); Immature Granulocytes % 0.4 % (0-4); Lymphocytes % 34.3 %; Mean Corpuscular HGB Conc 33.7 g/dL (31.6-35.5); Mean Corpuscular Hemoglobin 31.5 pg (28.0-33.3); Mean Corpuscular Volume 93.5 fL (83.0-100.0); Mean Platelet Volume 9.8 fL (9.4-12.4); Monocytes # 0.8 K/mcL (0.0-1.3); Monocytes % 6.9 %; Neutrophils # 6.3 K/mcL (1.6-8.9); Platelet Count 343 K/mcL (140-400); Red Blood Count 3.21 M/mcL (3.82-4.97); Red Cell Distribution Width 13.4 % (11.5-14.5); Segmented Neutrophils % 54.7 %
[2017-06-02] MEDS: Heparin 25,000 UNIT/500 ML D5W 25,000 UNIT/500 ML BAG IVC SCH (14:22)
--- NOTE | 2017-06-02 15:49 | Internal Med Progress Note ---
Date of Encounter: 06/02/17 Time of Encounter: 15:22 - Assessment and plan (1) NSTEMI (non-ST elevated myocardial infarction) Current Visit: Yes Status: Acute Assessment and plan: presented with chest pain. Troponin peaked at 0.11 and trended down. No acute EKG changes. Heparin drip started with elevation of troponin. 06/02/17 [place] with 90% stenosis to the mid RCA, s/p successful PCI. Continue Aggrastat, ASA, statin. No BB with hypotension. Brilinta to start 06/04/17. Cardiology following (2) Hypotension Current Visit: Yes Status: Acute Assessment and plan: post [place] on 06/02/17 with SBP's and 60s to 80s, no tachycardia. BP responsive to fluid resuscitation. Transfer to [facility] for higher level care. BP significantly improved with fluids. Last check SBP 115. Qualifiers: Hypotension type: postprocedural hypotension Qualified Code(s): I95.81 - Postprocedural hypotension (3) Hyponatremia Current Visit: Yes Status: Acute Assessment and plan: Na 126 on arrival. Neurologically intact. Stop home HCTZ. Monitor repeat CMP.. Na 129 on 06/02 (4) Cardiomyopathy Current Visit: Yes Status: Acute Assessment and plan: per hx. EF 40% per TTE 2016. . Unclear chronicity or etiology. . Euvolemic. Holding home diuretics with hypotension and hyponatremia. Cardiology following Qualifiers: Cardiomyopathy type: unspecified Qualified Code(s): I42.9 - Cardiomyopathy , unspecified (5) DVT prophylaxis Current Visit: No Status: Acute Assessment and plan: heparin gtt - Subjective Interval history: Seen and examined at bedside after left heart catheter. She was transferred to stepdown unit secondary to low blood pressure after heart catheterization. She c /o mild right groin tenderness, otherwise she has no complaints. - Constitutional Vitals: Temp Pulse Resp BP Pulse Ox 97.8 F 52 14 115/70 96 06/02/17 14:05 06/02/17 15:00 06/02/17 14:45 06/02/17 15:00 06/02/17 14:05 General appearance: Present: A&O X 3, pleasant, no acute distress - Head Head exam: Present: atraumatic, normocephalic - Eye Eye exam: Present: PERRL, conjuntiva pink, sclera anicteric Pupils: Present: PERRL - Neck Neck exam general surgery: Present: supple, trachea midline. Absent: lymphadenopathy - Respiratory Respiratory exam: Present: CTAB. Absent: accessory muscle use, rales, rhonchi, wheezes - Cardiovascular Cardiovascular exam: Present: RRR, +S1, +S2. Absent: diastolic murmur, gallop, rubs, systolic murmur - GI/Abdominal GI/Abdominal exam: Present: normal bowel sounds, soft, no peritoneal signs. Absent: distended, tenderness - Extremities Exam Extremities exam: Present: warm, radial pulses palpable and symmetrical. Absent : calf tenderness, cyanotic, pedal edema - Neurological Exam Neurological exam: Present: CN II-XII intact, oriented X3, no focal deficits. Absent: pronater drift, facial droop, speech deficit - Skin Skin exam: Present: dry, intact Internal Medicine: Result - Labs CBC & Chem 7: 06/02/17 13:50 06/02/17 00:49 Labs: Short CBC 06/02/17 06/02/17 Range/Units 00:49 13:50 WBC 10.0 11.6 H (4.3-11.1) K/mcL Hgb 10.8 L 10.1 L (11.5-15.4) g/dL Hct 32.3 L 30.0 L (35.3-44.9) % Plt Count 346 343 (140-400) K/mcL Neutrophils # 6.3 (1.6-8.9) K/mcL BMP 06/02/17 00:49 Sodium 129 L Potassium 3.8 Chloride 98 Carbon Dioxide 26 BUN 11 Creatinine 0.63 Glucose 104 Calcium 8.5 L - ABG Interpretation ABG results: PT/INR, D-dimer PT 11.7 Seconds (9.4-12.1) 05/31/17 18:55 D-Dimer 850 ng/mLFEU (0-500) H 05/31/17 12:15 - Impressions Impressions Echocardiogram 06/01/17 15:00 Impressions: LVEF 55%. Mild left ventricular diastolic dysfunction. Normal right ventricular structure and function. No significant valvular dysfunction. No pulmonary hypertension. There is a trivial pericardial effusion present. There is no echocardiographic evidence of tamponade. Left Ventricular Wall Motion: Rest Echo Findings All wall segments showed normal motion. Findings: Study Quality * Technically adequate exam. ECG Findings * Sinus bradycardia. Left Ventricle * LVEF 55%. * Asymmetric basal septal hypertrophy. No LVOTO. * Mild left ventricular diastolic dysfunction. Right Ventricle * Normal right ventricular structure and function. Left Atrium * Normal left atrial size. Right Atrium * Normal right atrial size. Aortic Valve * No aortic regurgitation. * Trileaflet aortic valve. * No aortic stenosis. Mitral Valve * Normal mitral valve structure. * No mitral regurgitation. * No mitral stenosis. Tricuspid Valve * Trace tricuspid regurgitation. * Normal tricuspid valve structure. * Estimated RA pressure is 3 mmHg. * Estimated RVSP is 18 mmHg. * No pulmonary hypertension. Pulmonic Valve * Pulmonic valve is not well visualized. * No pulmonic stenosis. * No pulmonic regurgitation. Pulmonary Artery * Pulmonary artery not well visualized. Aorta * Normally sized aortic root. * Ascending aorta is not well visualized. Pericardium * There is a trivial pericardial effusion present. * There is no echocardiographic evidence of tamponade. Interatrial Septum * No evidence of PFO by color Doppler. IVC * Normal IVC dimensions and inspiratory collapse. Consult Discharge Plan - Plan Referrals: Alvarado Amor Jr, MD [Primary Care Provider] -
[2017-06-02] MEDS: Nicotine 2 MG GUM BC PRN (16:16)
[2017-06-02] MEDS: traZODone 50 MG TABLET PO SCH (21:47)
[2017-06-02] MEDS: Famotidine 20 MG TABLET PO SCH (21:48)
[2017-06-02] MEDS: *HR* Ticagrelor 90 MG TABLET PO SCH (21:48)
[2017-06-02] MEDS: Fluticasone Propionate Nasal 50 MCG/SPRAY BOTTLE NS SCH (21:56)
[2017-06-03 07:16] LABS: Hematocrit 28.4 % (35.3-44.9); Hemoglobin 9.5 g/dL (11.5-15.4); Mean Corpuscular HGB Conc 33.5 g/dL (31.6-35.5); Mean Corpuscular Volume 92.8 fL (83.0-100.0); Mean Platelet Volume 10.4 fL (9.4-12.4); Platelet Count 337 K/mcL (140-400); Red Blood Count 3.06 M/mcL (3.82-4.97); Red Cell Distribution Width 13.5 % (11.5-14.5)
[2017-06-03 07:36] LABS: BUN/Creatinine Ratio 16 (6-26); Blood Urea Nitrogen 10 mg/dL (8-23); Calcium 8.9 mg/dL (8.6-10.3); Carbon Dioxide 24 mEq/L (23-29); Chloride 102 mEq/L (98-107); Glucose 104 mg/dL (70-105); Osmolality,Calculated 275 (280-300); Potassium 3.9 mEq/L (3.5-5.1); Sodium 133 mEq/L (136-145); eGFR For African Americans > 60 (> 60); eGFR For Non-African Americans > 60 (> 60)
[2017-06-03] MEDS ORDERED: Aspirin 81 MG TAB.CHEW PO SCH (09:00)
[2017-06-03] MEDS: ALPRAZolam 1 MG TABLET PO SCH (09:25)
[2017-06-03] MEDS: valACYclovir 500 MG TABLET PO SCH (09:25)
[2017-06-03] MEDS: Aspirin Enteric Coated 81 MG Tablet PO SCH (09:25)
[2017-06-03] MEDS: Cholecalciferol (D-3) 1,000 UNIT TABLET PO SCH (09:26)
[2017-06-03] MEDS: *HR* Ticagrelor 90 MG TABLET PO SCH (09:26)
[2017-06-03] MEDS: Pregabalin 75 MG CAPSULE PO SCH (09:26)
--- NOTE | 2017-06-03 10:05 | Cardiology Progress Note ---
Date of Encounter: 06/03/17 Time of Encounter: 10:01 Assessment and Plan (1) NSTEMI (non-ST elevated myocardial infarction) Current Visit: Yes Status: Acute Peak troponin 0.11 with downward trend. No acute ECG changes noted. Typical chest pain symptoms for the past 2.5 weeks. LHC yesterday showed severe 1 vessel CAD, successful PTCA/MEME in mid RCA. DAPT (ASA and Brilinta) uninterrupted x 1 year. Pt verbalizes understanding. States she called her insurance company and they cover Brilinta with $3 copay per month. Pt reports intolerance to statins--states she has tried mulitple statins and experiences significant leg cramps. Will d/c statin. Previously on BB, but currently hypotensive and all antihypertensives were stopped. Re-evaluate as outpt if BB can be started. Echo EF improved from previous 40% to now 55%. Mild LVDD. Trivial pericardial effusion without tamponade. Right femoral access site healing well. No bleeding or hematoma noted. Mild ecchymosis. Hypotensive--BP 90s systolic, but asymptomatic. Denies dizziness or lightheadedness. Cardiology signing off. Reconsult PRN. Will coordinate outpt follow-up in 1 week. (2) Tobacco abuse Current Visit: Yes Status: Chronic Tobacco cessation encouraged. (3) Hypotension Current Visit: Yes Status: Acute BP 90s systolic this AM. All antihypertensives have been stopped. Pt denies dizziness or lightheadedness. Re-evaluate as outpt if BB can be restarted. Qualifiers: Hypotension type: postprocedural hypotension Qualified Code(s): I95.81 - Postprocedural hypotension Discussion w patient/family: The assessment and plan as outlined above was discussed with the patient and/or family members who expressed understanding and agreement. All questions were answered. Thank you for involving us in the care of your patient. Please call with any questions. I will discuss all the above with Dr. Jeffries and make changes as necessary. Subjective Principal diagnosis: NSTEMI Interval history: S/P LHC yesterday with MEME to mid RCA. Pt denies chest pain or dyspnea overnight. Echo EF has improved from prior 40% to now 55%. BP 90s systolic this AM, but pt is asymptomatic--denies dizziness or lightheadedness. Objective Vital Signs, Last 4 Hours Temp Pulse Resp BP Pulse Ox 06/03/17 09:00 63 06/03/17 08:24 61 06/03/17 08:15 66 16 92/53 100 06/03/17 08:14 63 16 92/53 100 06/03/17 08:13 100 06/03/17 07:47 98.3 F 63 18 100/66 100 Vital Signs Temp Pulse Resp BP Pulse Ox 06/03/17 09:00 63 06/03/17 08:24 61 06/03/17 08:15 66 16 92/53 100 06/03/17 08:14 63 16 92/53 100 06/03/17 08:13 100 06/03/17 07:47 98.3 F 63 18 100/66 100 06/03/17 04:55 98.5 F 18 89/52 100 06/03/17 03:45 71 06/03/17 00:25 97.8 F 63 18 95/60 99 06/02/17 19:40 64 103/65 06/02/17 18:47 98.9 F 68 20 81/55 98 06/02/17 17:00 58 90/67 06/02/17 16:00 51 102/68 06/02/17 15:30 52 91/64 06/02/17 15:00 52 115/70 06/02/17 14:45 50 14 106/85 06/02/17 14:30 54 89/60 06/02/17 14:15 55 83/63 06/02/17 14:05 97.8 F 58 14 89/64 96 06/02/17 13:55 82/59 06/02/17 13:52 81/54 06/02/17 13:45 75/53 06/02/17 13:40 88/54 06/02/17 13:38 73/51 06/02/17 13:37 79/54 06/02/17 13:30 59/39 06/02/17 13:15 60/39 06/02/17 11:55 98.2 F 51 17 102/62 99 Intake and Output 06/02/17 06/03/17 06/03/17 23:59 07:59 15:59 Intake Total 480 / 480 860 / 860 480 / 480 Output Total 650 / 650 800 / 800 Balance -170 / -170 60 / 60 480 / 480 Intake: Oral 480 / 480 860 / 860 480 / 480 Output: Urine 650 / 650 800 / 800 Other: Meal Dinner Breakfast Percent of Meal Consumed 50% 100% # Voids 2 Weight 76.2 kg Patient Weight 06/03/17 23:59 Weight 76.2 kg General: Conversant, No Apparent Distress HEENT: Atraumatic, Normocephaly, Mucus Membranes Moist Neck: No JVD, Normal carotid pulses Cardiac: Reg Rate and Rhythm, Normal S1 and S2, No Murmur Lungs: Normal Breath Sounds, No Wheeze, Rales, Rhonchi Neuro: Alert and responsive, No focal deficits noted Abdomen: Soft, Non-Tender Skin: Other (right femoral access site healing well. No bleeding or hematoma noted. Mild ecchymosis.) Musculoskeletal: No Chest Wall Tenderness Extremities: No Clubbing, No Cyanosis, No Edema, Normal Pulses Results 06/03/17 06:33 06/03/17 06:33 Lab Results 06/02/17 06/03/17 06/03/17 13:50 06:33 06:33 WBC 11.6 H 16.3 H Hgb 10.1 L 9.5 L Hct 30.0 L 28.4 L Plt Count 343 337 Sodium 133 L Potassium 3.9 Chloride 102 Carbon Dioxide 24 BUN 10 Creatinine 0.61 Glucose 104 Calcium 8.9 Troponin I 06/03/17 06:33 WBC Hgb Hct Plt Count Sodium Potassium Chloride Carbon Dioxide BUN Creatinine Glucose Calcium Troponin I 0.03 Short CBC 06/03/17 06/02/17 Range/Units 06:33 13:50 WBC 16.3 H 11.6 H (4.3-11.1) K/mcL Hgb 9.5 L 10.1 L (11.5-15.4) g/dL Hct 28.4 L 30.0 L (35.3-44.9) % Plt Count 337 343 (140-400) K/mcL Neutrophils # 6.3 (1.6-8.9) K/mcL BMP 06/03/17 Range/Units 06:33 Sodium 133 L (136-145) mEq/L Potassium 3.9 (3.5-5.1) mEq/L Chloride 102 (98-107) mEq/L Carbon Dioxide 24 (23-29) mEq/L BUN 10 (8-23) mg/dL Creatinine 0.61 (0.60-1.20) mg/dL Glucose 104 (70-105) mg/dL Calcium 8.9 (8.6-10.3) mg/dL Cardiac Enzymes 06/03/17 Range/Units 06:33 Troponin I 0.03 (< 0.04) ng/mL Impressions Echocardiogram 06/01/17 15:00 Impressions: LVEF 55%. Mild left ventricular diastolic dysfunction. Normal right ventricular structure and function. No significant valvular dysfunction. No pulmonary hypertension. There is a trivial pericardial effusion present. There is no echocardiographic evidence of tamponade. Left Ventricular Wall Motion: Rest Echo Findings All wall segments showed normal motion. Findings: Study Quality * Technically adequate exam. ECG Findings * Sinus bradycardia. Left Ventricle * LVEF 55%. * Asymmetric basal septal hypertrophy. No LVOTO. * Mild left ventricular diastolic dysfunction. Right Ventricle * Normal right ventricular structure and function. Left Atrium * Normal left atrial size. Right Atrium * Normal right atrial size. Aortic Valve * No aortic regurgitation. * Trileaflet aortic valve. * No aortic stenosis. Mitral Valve * Normal mitral valve structure. * No mitral regurgitation. * No mitral stenosis. Tricuspid Valve * Trace tricuspid regurgitation. * Normal tricuspid valve structure. * Estimated RA pressure is 3 mmHg. * Estimated RVSP is 18 mmHg. * No pulmonary hypertension. Pulmonic Valve * Pulmonic valve is not well visualized. * No pulmonic stenosis. * No pulmonic regurgitation. Pulmonary Artery * Pulmonary artery not well visualized. Aorta * Normally sized aortic root. * Ascending aorta is not well visualized. Pericardium * There is a trivial pericardial effusion present. * There is no echocardiographic evidence of tamponade. Interatrial Septum * No evidence of PFO by color Doppler. IVC * Normal IVC dimensions and inspiratory collapse. Chest X-Ray 06/03/17 08:00 IMPRESSION: No acute cardiopulmonary disease. D/ / Zohreh Sales MD / Zohreh Sales MD Interpreting Provider: Zohreh Sales MD Active Medications Acetaminophen (Tylenol) 650 mg PO Q6HR PRN PRN Reason: Mild Pain (1-3) Stop: 11/30/17 16:04 Acetylcysteine (Acetylcysteine 20%) 600 mg PO BID [facility] Stop: 11/30/17 21:01 Last Admin: 06/02/17 21:59 Dose: 600 mg Albuterol Sulfate (Proventil Neb) 2.5 mg IH TIDR PRN; Protocol PRN Reason: Shortness Of Breath Stop: 11/30/17 16:04 Alprazolam (Xanax) 1 mg PO BID KEVIN PRN Reason: Protocol Stop: 11/30/17 21:01 Last Admin: 06/03/17 09:25 Dose: 1 mg Aspirin (Aspirin Ec) 81 mg PO DAILY [facility] Stop: 12/01/17 09:01 Last Admin: 06/03/17 09:25 Dose: 81 mg Aspirin (Aspirin) 81 mg PO DAILY [facility] Stop: 12/03/17 09:01 Last Admin: 06/03/17 08:29 Dose: Not Given Atorvastatin Calcium (Lipitor) 40 mg PO HS [facility] Stop: 11/30/17 21:01 Last Admin: 06/02/17 21:15 Dose: Not Given Famotidine (Pepcid) 20 mg PO HS [facility] Stop: 11/30/17 21:01 Last Admin: 06/02/17 21:48 Dose: 20 mg Fluticasone Propionate (Flonase) 50 mcg NS HS [facility] PRN Reason: Protocol Stop: 11/30/17 22:16 Last Admin: 06/02/17 21:56 Dose: 50 mcg Metoclopramide HCl (Reglan) 10 mg PO HS [facility] Stop: 11/30/17 21:01 Last Admin: 06/02/17 21:48 Dose: 10 mg Montelukast Sodium (Singulair) 10 mg PO DAILY [facility] Stop: 12/01/17 09:01 Last Admin: 06/03/17 09:25 Dose: 10 mg Naloxone HCl (Narcan) 0.4 mg IVP Q2MIN PRN PRN Reason: Opioid Reversal Stop: 11/30/17 16:06 Nicotine Polacrilex (Nicorette Gum) 2 mg BC Q2H PRN PRN Reason: Nicotine Cravings Stop: 12/01/17 10:43 Last Admin: 06/02/17 16:16 Dose: 2 mg Omeprazole (Prilosec) 20 mg PO BID [facility] PRN Reason: Protocol Stop: 11/30/17 21:01 Last Admin: 06/03/17 09:26 Dose: 20 mg Oxycodone HCl (Roxicodone) 5 mg PO Q6HR PRN PRN Reason: Moderate Pain (4-6) Stop: 11/30/17 16:06 Oxycodone HCl (Roxicodone) 5 mg PO Q4HR PRN; Protocol PRN Reason: severe pain 7-10 Stop: 12/02/17 10:27 Last Admin: 06/03/17 06:28 Dose: 5 mg Pharmacy Profile Note (Patient Taking Own Medication) 1 each IH HS [facility] Stop: 11/30/17 21:01 Last Admin: 06/02/17 21:59 Dose: 1 each Pregabalin (Lyrica) 150 mg PO TID [facility] Stop: 11/30/17 21:01 Last Admin: 06/03/17 09:26 Dose: 150 mg Sertraline HCl (Zoloft) 100 mg PO DAILY [facility] Stop: 12/01/17 09:01 Last Admin: 06/03/17 09:25 Dose: 100 mg Ticagrelor (Brilinta) 90 mg PO BID [facility] Stop: 12/02/17 21:01 Last Admin: 06/03/17 09:26 Dose: 90 mg Trazodone HCl (Trazodone) 150 mg PO HS [facility] Stop: 11/30/17 21:01 Last Admin: 06/02/17 21:47 Dose: 150 mg Valacyclovir HCl (Valtrex) 1,000 mg PO DAILY [facility] Stop: 12/01/17 09:01 Last Admin: 06/03/17 09:25 Dose: 1,000 mg Vitamin D (Vitamin D) 1,000 unit PO DAILY [facility] Stop: 12/01/17 09:01 Last Admin: 06/03/17 09:26 Dose: 1,000 unit - Imaging and Cardiology Echo: report reviewed Cardiac cath: report reviewed - EKG Interpretation EKG results cardiology: other (12 hr tele AVG HR 65, SR, no significant pauses or arrhythmias.) Consult Discharge Plan - Plan Additional Instructions: RISK FACTORS: STOP SMOKING: If you smoke, STOP. Smoking or tobacco use significantly increases your risk of heart disease because nicotine causes the arteries to narrow or constrict. It also causes fats to stick to the artery. Your chances of having a heart attack are greatly increased if you continue to smoke. For more information, call the education line for smoking cessation 3-063-XNXWAGC EAT A LOW FAT/CHOLESTEROL/SODIUM DIET: This diet may help reduce your chances of having a heart attack. LIFTING: Avoid lifting anything more than 10 pounds for 5-7 days Prior to straining, laughing, sneezing and/or coughing, apply manual pressure directly over insertion site. ACTIVITY: You may walk or climb stairs as tolerated You can resume sexual activity as tolerated In general, you are encouraged to engage in a minimum of 30 minutes or more of moderate intensity physical activity, such as brisk walking, daily or at least 3 -4 times weekly BATHING Do not submerge the site into water (bath tub, hot tub, swimming pool) for 1 week. This can be a source for infection into the blood stream. You may shower after 24 hours SITE CARE: After 24 hours, you may remove the dressing and leave the site open to air. Keep the site clean and dry. Clean gently and pat dry. You can expect bruising and tenderness that gradually resolve within a week or two. Return to work as instructed per your physician Resume driving as instructed per physician Keep all scheduled follow up appointments Resume medications as instructed IMPORTANT: If prescribed a Platelet Aggregation Inhibitor such as, Plavix, Brilinta or Effient: Duration of therapy is minimum one year These medications are often used in combination with Aspirin in prevention of future heart attacks Never discontinue unless consult with your It Operations Specialist STROKE (CVA) Risk factors for a stroke are: Age, cigarette smoking, diabetes, excessive alcohol consumption, family history, high blood pressure, overweight, physical inactivity, prior stroke, heart attack, diagnosis of carotid artery stenosis or other artery disease. Warning signs: Sudden numbness or weakness of the face, arm or leg; especially on one side of the body, sudden confusion, trouble speaking or understanding, sudden trouble seeing in one or both eyes, sudden trouble walking, dizziness, loss of balance or coordination, sudden severe headache with no cause. Call 911 or go to the Emergency Room. CONGESTIVE HEART FAILURE: If you have been diagnosed with Congestive Heart Failure (CHF) and your symptoms return, make an appointment with your physician Weigh yourself daily. Notify your physician if you have a weight gain of two or more pounds in one day or five or more pounds in one week. If you experience any difficulty breathing, please call 911 BLEEDING: Although the risk of bleeding is minimal, it can happen. If you have any bleeding from the site, apply firm pressure above the puncture site for 10-15 minutes. If the bleeding does not stop, continue manual pressure and call 911 Contact your physician if: You develop a fever greater than 101 degrees Fahrenheit Your site becomes reddened or has any drainage You have an increase in pain or burning at the site or if a large knot forms at the site. If you experience chest pain, shortness of breath, dizziness, or extreme tiredness, stop the activity and rest. Please notify your physicians office if you experience any of these symptoms and they are not relieved by rest please call 911! Referrals: Alvaraod Amor Jr, MD [Primary Care Provider] - 06/09/17 3:00 pm
[2017-06-03 11:26] VITALS: BP 112/77
--- NOTE | 2017-06-03 12:57 | Discharge Summary ---
Date of Encounter: 06/03/17 Time of Encounter: 12:55 - Discharge Diagnosis (1) Congestive heart failure Priority: Secondary Status: Chronic Qualifiers: Congestive heart failure type: combined Congestive heart failure chronicity : chronic Qualified Code(s): I50.42 - Chronic combined systolic (congestive) and diastolic (congestive) heart failure (2) Hyponatremia Priority: Secondary Status: Acute (3) Interstitial lung disease Priority: Secondary Status: Chronic (4) NSTEMI (non-ST elevated myocardial infarction) Priority: Primary Status: Acute (5) Hypotension Priority: Primary Status: Acute Qualifiers: Hypotension type: postprocedural hypotension Qualified Code(s): I95.81 - Postprocedural hypotension - Discharge Medications Prescriptions: Aspirin Enteric Coated [Aspirin EC] 81 mg PO DAILY #30 tablet. Ticagrelor [Brilinta] 90 mg PO BID #60 tablet Home Medications: Sertraline [Zoloft] 100 mg PO DAILY 06/22/15 [History] ALPRAZolam [Xanax 1 MG Tablet] 1 mg PO BID 04/11/16 [History] Metoclopramide [Reglan] 10 mg PO HS 04/11/16 [History] Pregabalin [Lyrica] 150 mg PO TID 04/11/16 [History] Ranitidine HCl [Zantac] 150 mg PO HS 04/11/16 [History] Trazodone HCl 150 mg PO HS 04/11/16 [History] Albuterol Neb [Proventil Neb] 2.5 mg IH TID PRN 02/01/17 [History] Cholecalciferol (Vitamin D3) [Vitamin D3] 1,000 mg PO DAILY 02/01/17 [History] Fluticasone Propionate Nasal [Flonase] 1 spray NS DAILY 02/01/17 [History] Fluticasone/Vilanterol [Breo Ellipta 200-25 Mcg INH] 1 puff IH DAILY 02/01/17 [ History] Omeprazole [PriLOSEC] 20 mg PO BID 02/01/17 [History] Oxygen 3 l NS HS 02/01/17 [History] Acetaminophen [Tylenol] 650 mg PO Q6HR PRN tablet 02/02/17 [Rx] Acetylcysteine [Nac] 600 mg PO BID 05/31/17 [History] Montelukast [Singulair] 10 mg PO DAILY 05/31/17 [History] Valacyclovir HCl [Valtrex] 1,000 mg PO DAILY 05/31/17 [History] Aspirin Enteric Coated [Aspirin EC] 81 mg PO DAILY #30 tablet. 06/03/17 [Rx] Ticagrelor [Brilinta] 90 mg PO BID #60 tablet 06/03/17 [Rx] Allergies/Adverse Reactions: 3 Allergy/AdvReac Type Severity Reaction Status Date / Time Diclofenac [From Voltaren] AdvReac Rash Verified 05/31/17 12:27 Penicillins [PCN] AdvReac Rash Verified 05/31/17 12:27 propoxyphene [From Darvon] AdvReac Rash Verified 05/31/17 12:27 Procedures/tests Complete & Pending: Procedures Performed prior 72 hours Category Date Time Status CL Cardiac Catheterization [CL] Routine Workers Compensation Administrator 06/02/17 07:00 Completed ECG 12 lead ECG [ECG] AM 0600 Y 06/03/17 06:00 Ordered ECG 12 lead ECG [ECG] Stat Y 06/02/17 12:52 Ordered Date of admission: 05/31/17 19:56 Primary care physician: Alvarado Amor Jr, MD Consults: 06/01/17 14:05 Consult to Cardiac Rehabilitation-Phase1 [CONS] Routine Comment: Reason for Consult: NSTEMI Call Completed: No 06/02/17 12:52 Consult to Cardiac Rehabilitation-Phase1 [CONS] Routine Comment: Reason for Consult: post op PCI Call Completed: Yes - Patient Status Disposition: Home, Self-Care Condition: Fair Overall status at discharge: patient is progressing back to baseline - Discharge Instructions Instructions: Myocardial Infarction (DC), Chest Pain (DC) Follow Up With: Alvarado Amor Jr, MD [Primary Care Provider] - 06/09/17 3:00 pm Stef Cordova DO [Partnered Physician] - (2 weeks) Additional Instructions: RISK FACTORS: STOP SMOKING: If you smoke, STOP. Smoking or tobacco use significantly increases your risk of heart disease because nicotine causes the arteries to narrow or constrict. It also causes fats to stick to the artery. Your chances of having a heart attack are greatly increased if you continue to smoke. For more information, call the education line for smoking cessation 3-368-SELZNAF EAT A LOW FAT/CHOLESTEROL/SODIUM DIET: This diet may help reduce your chances of having a heart attack. LIFTING: Avoid lifting anything more than 10 pounds for 5-7 days Prior to straining, laughing, sneezing and/or coughing, apply manual pressure directly over insertion site. ACTIVITY: You may walk or climb stairs as tolerated You can resume sexual activity as tolerated In general, you are encouraged to engage in a minimum of 30 minutes or more of moderate intensity physical activity, such as brisk walking, daily or at least 3 -4 times weekly BATHING Do not submerge the site into water (bath tub, hot tub, swimming pool) for 1 week. This can be a source for infection into the blood stream. You may shower after 24 hours SITE CARE: After 24 hours, you may remove the dressing and leave the site open to air. Keep the site clean and dry. Clean gently and pat dry. You can expect bruising and tenderness that gradually resolve within a week or two. Return to work as instructed per your physician Resume driving as instructed per physician Keep all scheduled follow up appointments Resume medications as instructed IMPORTANT: If prescribed a Platelet Aggregation Inhibitor such as, Plavix, Brilinta or Effient: Duration of therapy is minimum one year These medications are often used in combination with Aspirin in prevention of future heart attacks Never discontinue unless consult with your Instrumentation Controls Engineer STROKE (CVA) Risk factors for a stroke are: Age, cigarette smoking, diabetes, excessive alcohol consumption, family history, high blood pressure, overweight, physical inactivity, prior stroke, heart attack, diagnosis of carotid artery stenosis or other artery disease. Warning signs: Sudden numbness or weakness of the face, arm or leg; especially on one side of the body, sudden confusion, trouble speaking or understanding, sudden trouble seeing in one or both eyes, sudden trouble walking, dizziness, loss of balance or coordination, sudden severe headache with no cause. Call 911 or go to the Emergency Room. CONGESTIVE HEART FAILURE: If you have been diagnosed with Congestive Heart Failure (CHF) and your symptoms return, make an appointment with your physician Weigh yourself daily. Notify your physician if you have a weight gain of two or more pounds in one day or five or more pounds in one week. If you experience any difficulty breathing, please call 911 BLEEDING: Although the risk of bleeding is minimal, it can happen. If you have any bleeding from the site, apply firm pressure above the puncture site for 10-15 minutes. If the bleeding does not stop, continue manual pressure and call 911 Contact your physician if: You develop a fever greater than 101 degrees Fahrenheit Your site becomes reddened or has any drainage You have an increase in pain or burning at the site or if a large knot forms at the site. If you experience chest pain, shortness of breath, dizziness, or extreme tiredness, stop the activity and rest. Please notify your physicians office if you experience any of these symptoms and they are not relieved by rest please call 911! - Diet and Activity Activity: increase activity as tolerated Diet: low salt diet Hospital course: Ms. Wilson is a 66 year old female with PMH of COPD, ILD, Tobacco abuse, chronic respiratory failure on nocturnal home O2, HTN, anxiety/Depression, GERD who presented to the ER with complains of non-radiating, substernalchest pain and her peak troponin was 0.11. No EKG changes. She was admitted to the hospitalist service. Consult to cardiology was obtained. Given elevated troponins she was started on a heparin drip. She was taken for left heart catheterization and was found to have a severe one vessel disease. A drug- eluting stent was placed to the mid RCA. She was started on Brilinta and baby aspirin. She was discharged on 06/03/2018 with follow-up with primary care physician and cardiology. - Time Spent with Patient Total time spent providing and/or coordinating discharge services: Greater than 30 minutes - Constitutional Vitals: Temp Pulse Resp BP Pulse Ox 98.3 F 69 18 112/77 97 06/03/17 11:23 06/03/17 12:11 06/03/17 12:11 06/03/17 12:05 06/03/17 12:11 General appearance: Present: A&O X 3, pleasant, no acute distress Exam: GEN: NAD CVS: RRR. S1, S2, No m/r/g RESP: CTAB ABD: Soft, NT, ND, +BS EXT: No edema. 2+ DP. No rashes NEURO: Nonfocal
--- NOTE | 2017-06-03 17:04 | Electrocardiograph Report ---
[address] [address] Test Date: 2017-05-31 Pat Name: Tameka Wilson Department: 103 Room: 2N02 Gender: F Senior Boiler Operator: DUTCH : 1950 Requested By: Mitchell Weller Order Number: [id number] Reading MD: Jose Oreilly Measurements Intervals [place] Rate: 57 P: 39 NH: 200 QRS: 6 QRSD: 85 T: 4 QT: 417 QTc: 412 Interpretive Statements SINUS BRADYCARDIA Electronically Signed On 06-03-2017 17:03:08 EST by Jose Oreilly
== END 2017-06-03 13:40 | disposition home or self-care (01) | DRG 247 ==
LOC: EMEROO 11:55 → 3BNU 11:55 → 2NNU 06-02 14:24
PROVIDERS: ADMIT Internal Medicine; ATTEND Registered Nurse